=== PATIENT | female | born 1980 | race African-American/Black ===

== ENCOUNTER 2017-01-28 22:22 | Emergency (ER) | payer OTHER, MEDICAID ==
[2017-01-28 22:30] VITALS: BP 136/91; BMI 30.3
[2017-01-28] MEDS ORDERED: TYLENOL 500 MG TAB EXTRA STRENGTH ONE (22:35)
[2017-01-28] MEDS ORDERED: TYLENOL 500 MG TAB EXTRA STRENGTH PO ONE (22:49)
--- NOTE | 2017-01-29 00:47 | DR.GENAD ---
HPI - PCP Primary Care Physician: NFD - HPI Comment HPI Comment: GETTING WORSE. PATIENT IS WEAK AND DRAINED OF ENERGY. - Complaint/Symptoms Chief Complaint Doctors Comments: FEVER, NAUSEA AND VOMITING Chief Complaint:: "I have been throwing up and running a fever." Self Treatment fo Chief Complaint: Patient took 2 asprin around 2pm - Nurses notes reviewed Nurses Notes Review: Yes - Source History Provided: Patient - Mode of Arrival Mode of Arrival: Ambulatory - Timing Onset of Chief Complaint: 01/27/17 Came on: Suddenly - Duration Duration: Constant Duration: Days - Severity Severity: Moderate PMH - PMH Past Medical History: Yes Past Medical History: Hypertension Past Surgical History: No - Family History History of Family Medical Conditions: Yes Family Medical History: Diabetes Mellitus, [place], Hypertension - Social History Does patient currently use any type of tobacco product: No Have you used tobacco products in the last 12 months: No Type of Tobacco Use: None Does any household member use tobacco: No Alcohol Use: None Do you use any recreational Drugs:: No Lives With: Spouse Lives Where: Home - infectious screening In the last 2 months have you had wt loss of >10#?: NO Have you had fever, night sweats or hemotysis?: No Have you traveled outside the country in the last 6 months?: No Isolation: Standard ROS - Review of Systems Constitutional: Chills, Fever, Weakness, Fatigue Eyes: No Symptoms Reported. negative: Eye Pain, Discharge ENTM: No Symptoms Reported. negative: Ear Pain, Nose Discharge, Nose Congestion , Throat Pain Respiratoy: No Symptoms Reported. negative: Productive Cough, Non-Productive Cough, Short of Breath, Wheezing, Hemoptysis Cardiovascular: No Symptoms Reported. negative: Chest Pain Gastrointestinal/Abdominal: Abdominal Pain, Nausea, Vomiting Genitourinary: No Symptoms Reported. negative: Dysuria, Frequency, Hematuria Neurological: No Symptoms Reported, Headache, Weakness, Dizziness Musculoskeletal: No Symptoms Reported Integumentary: No Symptoms Reported Hematologic/Lymphatic: No Symptoms Reported Endocrine: No Symptoms Reported All Other Systems: Reviewed and Negative PE - Vital Signs Vitals: Temperature 102.8 F Pulse Rate 118 Respiratory Rate 18 Blood Pressure 136/91 O2 Sat by Pulse Oximetry 95 - General Limitations: No Limitations General Appearance: Alert - Head Head Exam: Normal Inspection - Eyes Eye exam: Normal Appearance - ENT ENT Exam: Normal External Ear Exam External Ear Exam: Normal External Inspection TM/Canal Exam: Bilateral Normal Nose Exam: Normal Nose Exam Mouth Exam: Normal Inspection Throat Exam: Normal Inspection - Neck Neck Exam: Normal Inspection - Chest Chest Inspection: Symmetric Chest Wall Rise - Respiratory Respiratory Exam: Normal Lung Sounds Bilat Respiratory Exam: Bilateral Clear to Auscultation - Cardiovascular Cardiovascular Exam: Regular Rate, Normal Rhythm, Tachycardia - Abdominal Exam Abdominal Tenderness: Diffuse, Moderate - Back Back Exam: Normal Inspection - Neurologic Neurological Exam: Alert, Oriented X3 - Psychiatric Psychiatric Exam: Anxious - Skin Skin Exam: Normal Color MDM - Differential Diagnosis Differential Diagnosis: GASTROENTERITIS, ABDOMINAL PAIN, FLU Course - Treatment Treatment: SEE ORDERS. - Education/Counseling Education/Counseling: Patient, Education Educated On: Treatment, Diagnosis, Needs for Follow Up ROR - Labs Reviewed Laboratory Results Reviewed?: Yes Result Diagrams: 01/29/17 01:05 01/29/17 01:05 Laboratory: WBC 5.2 X10^3/uL (3.6-10.0) 01/29/17 01:05 RBC 3.96 X10^6/uL (3.5-5.4) 01/29/17 01:05 Hgb 10.8 g/dL (12.0-16.0) L 01/29/17 01:05 Hct 33.5 % (36.0-47.0) L 01/29/17 01:05 MCV 84.4 fL (80.0-100.0) 01/29/17 01:05 MCH 27.2 pg (27.0-34.0) 01/29/17 01:05 MCHC 32.3 g/dL (33.0-35.0) L 01/29/17 01:05 RDW 15.8 % (11.6-16.5) 01/29/17 01:05 Plt Count 209 X10^3/uL (150.0-450.0) 01/29/17 01:05 MPV 7.6 fL (7.4-11.0) 01/29/17 01:05 Neut % 81.3 % (42.0-75.0) H 01/29/17 01:05 Lymph % 10.9 % (21.0-51.0) L 01/29/17 01:05 [place] % 7.7 % (0.0-13.0) 01/29/17 01:05 Eos % 0.0 % (0.9-2.9) L 01/29/17 01:05 Baso % 0.1 % (0.2-1.0) L 01/29/17 01:05 Neut # 4.2 x10^3/uL (2.2-4.8) 01/29/17 01:05 Lymph # 0.6 X10^3/uL (1.3-2.9) L 01/29/17 01:05 [place] # 0.4 x10^3/uL (0.3-0.8) 01/29/17 01:05 Eos # 0.0 x10^3/uL (0.0-0.2) 01/29/17 01:05 Baso # 0.0 X10^3/uL (0.0-0.1) 01/29/17 01:05 Absolute Nucleated RBC 0.1 /100WBC 01/29/17 01:05 Sodium 143 mmol/L (136-145) 01/29/17 01:05 Corrected Sodium TNP 01/29/17 01:05 Potassium 3.0 mmol/L (3.5-5.1) L* 01/29/17 01:05 Chloride 106 mmol/L (98-107) 01/29/17 01:05 Carbon Dioxide 25.1 mmol/L (21-32) 01/29/17 01:05 BUN 9 mg/dL (7-18) 01/29/17 01:05 Creatinine 1.05 mg/dL (0.55-1.02) H 01/29/17 01:05 Est GFR (MDRD) Af Amer > 60 (>60) 01/29/17 01:05 Est GFR (MDRD) Non-Af > 60 (>60) 01/29/17 01:05 Glucose 108 mg/dL (65-99) H 01/29/17 01:05 Calcium 8.1 mg/dL (8.5-10.1) L 01/29/17 01:05 Corrected Calcium TNP 01/29/17 01:05 Total Bilirubin 0.60 mg/dL (0.2-1.0) 01/29/17 01:05 AST 23 Units/L (15-37) 01/29/17 01:05 ALT 29 Units/L (12-78) 01/29/17 01:05 Alkaline Phosphatase 103 Units/L (46-116) 01/29/17 01:05 Total Protein 8.4 g/dL (6.4-8.2) H 01/29/17 01:05 Albumin 3.7 g/dL (3.4-5.0) 01/29/17 01:05 Globulin 4.7 g/dL (2.5-4.5) H 01/29/17 01:05 Albumin/Globulin Ratio 0.8 Ratio (1.1-2.1) L 01/29/17 01:05 Specimen Type Clean catch urine 01/29/17 01:41 Urine Color Yellow (YELLOW) 01/29/17 01:41 Urine Appearance Clear (CLEAR) 01/29/17 01:41 Urine pH 5.0 (5.0 - 8.0) 01/29/17 01:41 Ur Specific [place] 1.015 (1.000-1.030) 01/29/17 01:41 Urine Protein 2+ (NEGATIVE) 01/29/17 01:41 Urine Glucose (UA) Negative (NEGATIVE) 01/29/17 01:41 Urine Ketones Negative (NEGATIVE) 01/29/17 01:41 Urine Occult Blood 5+ (NEGATIVE) 01/29/17 01:41 Urine Nitrite Negative (NEGATIVE) 01/29/17 01:41 Urine Bilirubin Negative (NEGATIVE) 01/29/17 01:41 Urine Urobilinogen Normal (NORMAL) 01/29/17 01:41 Ur Leukocyte Esterase Negative (NEGATIVE) 01/29/17 01:41 Urine RBC 0-3 /HPF (NEGATIVE) 01/29/17 01:41 Urine WBC 0-2 /HPF (NEGATIVE) 01/29/17 01:41 Ur Squamous Epith Cells Moderate /HPF (NEGATIVE) 01/29/17 01:41 Urine Bacteria 1+ /HPF (NEGATIVE) 01/29/17 01:41 Ur Culture Indicated? No/not indicated 01/29/17 01:41 Influenza A (H1N1) PCR Not detected (NOT DETECT) 01/29/17 00:57 Influenza Type A (PCR) Positive (NEGATIVE) A 01/29/17 00:57 Influenza Type B (PCR) Negative (NEGATIVE) 01/29/17 00:57 - Diagnosis Discharge Problem: Influenza, Gastroenteritis - Discharge Plan Disposition: 01 HOME, SELF-CARE Condition: Stable Prescriptions: Acetaminophen/Codeine Tab [TYLENOL w/CODEINE #3 (300 MG/30 MG) *] 1 tab PO Q4- 6H PRN #15 tab PRN Reason: Pain Ondansetron HCl [Zofran Tab 4 mg] 4 mg PO Q8H PRN #12 tab PRN Reason: Nausea/Vomiting Oseltamivir Phosphate [Tamiflu] 75 mg PO BID #10 cap - Follow ups/Referrals Follow ups/Referrals: NFD,None [Primary Care Provider] - 3 days - Instructions Instructions: Influenza, Adult, Viral Gastroenteritis, Adult, [id number] Additional Instructions: RETURN TO ED IF WORSE,
[2017-01-29 01:21] LABS: BASOPHILS % (AUTO) 0.1 % (0.2-1.0); HEMATOCRIT 33.5 % (36.0-47.0); HEMOGLOBIN 10.8 g/dL (12.0-16.0); LYMPHOCYTES # (AUTO) 0.6 X10^3/uL (1.3-2.9); LYMPHOCYTES % (AUTO) 10.9 % (21.0-51.0); MEAN CORPUSCULAR HEMOGLOBIN 27.2 pg (27.0-34.0); MEAN CORPUSCULAR HGB CONC 32.3 g/dL (33.0-35.0); MEAN CORPUSCULAR VOLUME 84.4 fL (80.0-100.0); MEAN PLATELET VOLUME 7.6 fL (7.4-11.0); MONOCYTES # (AUTO) 0.4 x10^3/uL (0.3-0.8); MONOCYTES % (AUTO) 7.7 % (0.0-13.0); NEUTROPHILS # (AUTO) 4.2 x10^3/uL (2.2-4.8); NEUTROPHILS % (AUTO) 81.3 % (42.0-75.0); PLATELET COUNT 209 X10^3/uL (150.0-450.0); RED BLOOD COUNT 3.96 X10^6/uL (3.5-5.4); RED CELL DISTRIBUTION WIDTH 15.8 % (11.6-16.5); WHITE BLOOD COUNT 5.2 X10^3/uL (3.6-10.0)
[2017-01-29 01:23] LABS: BLOOD UREA NITROGEN 9 mg/dL (7-18); CALCIUM 8.1 mg/dL (8.5-10.1); CARBON DIOXIDE 25.1 mmol/L (21-32); CHLORIDE 106 mmol/L (98-107); CREATININE 1.05 mg/dL (0.55-1.02); GLUCOSE 108 mg/dL (65-99); SODIUM 143 mmol/L (136-145); eGFR BLACK RACES > 60 (>60); eGFR NON BLACK RACES > 60 (>60)
[2017-01-29 01:27] LABS: ALANINE AMINOTRANSFERASE 29 Units/L (12-78); ALBUMIN 3.7 g/dL (3.4-5.0); ALKALINE PHOSPHATASE 103 Units/L (46-116); ASPARTATE AMINO TRANSFERASE 23 Units/L (15-37); TOTAL PROTEIN 8.4 g/dL (6.4-8.2)
[2017-01-29] MEDS ORDERED: TORADOL 60 MG VIAL IM ONE (01:33)
[2017-01-29] MEDS ORDERED: ZOFRAN INJ 4 MG VIAL IM ONE (01:33)
[2017-01-29] MEDS ORDERED: TORADOL 60 MG VIAL ONE (01:38)
[2017-01-29] MEDS ORDERED: ZOFRAN INJ 4 MG VIAL ONE (01:43)
[2017-01-29 01:47] LABS: BILIRUBIN,URINE NEGATIVE (NEGATIVE); BLOOD/HEMOGLOBIN,URINE 5+ (NEGATIVE); GLUCOSE, URINE NEGATIVE (NEGATIVE); KETONES,URINE NEGATIVE (NEGATIVE); LEUKOCYTE ESTERASE ,URINE NEGATIVE (NEGATIVE); NITRITES,URINE NEGATIVE (NEGATIVE); PROTEIN,URINE 2+ (NEGATIVE); UROBILINOGEN,URINE NORMAL (NORMAL)
[2017-01-29 01:49] LABS: APPEARANCE,URINE CLEAR (CLEAR); COLOR,URINE YELLOW (YELLOW)
[2017-01-29 01:51] LABS: BACTERIA,URINE 1+ /HPF (NEGATIVE); RBC,URINE 0-3 /HPF (NEGATIVE); SQUAMOUS EPITHELIAL CELL,UR MODERATE /HPF (NEGATIVE)
[2017-01-29] MEDS ORDERED: POTASSIUM CHLORIDE LIQ 20 MEQ UDC PO ONE (01:53)
[2017-01-29] MEDS ORDERED: POTASSIUM CHLORIDE LIQ 20 MEQ UDC ONE (02:01)
[2017-01-29] MEDS ORDERED: K-DUR TAB 20 MEQ PO ONE ×2 (02:53→02:58)
== END 2017-01-29 03:15 | disposition home or self-care (01) ==
LOC: ER 22:22
DX: J11.1 Influenza due to unidentified influenza virus with other respiratory manifestations (principal); K52.89 Other specified noninfective gastroenteritis and colitis
CPT/HCPCS: 36415; 80053; 81001; 85025; 87502; 87503; 96372; 99283; J1885; J2405

== ENCOUNTER → 2017-09-05 | Outpatient (CLI) | payer OTHER, MEDICAID | LOC: LAB 12:09 | PROVIDERS: ATTEND Internal Medicine Cardiovascular Disease | DX: Z13.29 Encounter for screening for other suspected endocrine disorder (principal); Z79.899 Other long term (current) drug therapy | CPT/HCPCS: 36415; 84443 ==

== ENCOUNTER 2017-11-03 15:10 | Emergency (ER) | payer OTHER, MEDICAID ==
[2017-11-03 15:27] VITALS: BP 145/99; BMI 29.8
--- NOTE | 2017-11-03 16:30 | DR.FBACK ---
HPI - PCP Primary Care Physician: LINETTE - Complaint Chief Complaint:: PT C/O BACK PAIN FOR THE PAST 5 DAYS PT STATES HX OF ARTHRITIS , PT C/O INTERMITTANT SHARP PAINS,,, PT DENIES ANY TRAUMA. Self Treatment fo Chief Complaint: ADVIL PM, - Reviewed Nurses Notes Review: Yes - Source History Provided: Patient - Mode of Arrival Mode of Arrival: Ambulatory - Timing Onset of Chief Complaint: 10/30/17 - Duration Duration: Constant Duration: Days - Location Back Pain Location: BACK - Severity Severity: Moderate - Associated Signs and Symptoms Back Pain Symptoms: None Numbness: None Weakness: None PMH - PMH Past Medical History: Yes Past Medical History: Hypertension Past Surgical History: No - Family History History of Family Medical Conditions: Yes Family Medical History: Diabetes Mellitus, [place], Hypertension - Social History Does patient currently use any type of tobacco product: No Have you used tobacco products in the last 12 months: No Type of Tobacco Use: None Does any household member use tobacco: No Alcohol Use: None Do you use any recreational Drugs:: No Lives With: Alone, Family Lives Where: Home - infectious screening In the last 2 months have you had wt loss of >10#?: NO Have you had fever, night sweats or hemotysis?: No Have you traveled outside the country in the last 6 months?: No Isolation: Standard ROS - Review of Systems Constitutional: No Symptoms Reported Eyes: No Symptoms Reported ENTM: No Symptoms Reported Respiratoy: No Symptoms Reported Cardiovascular: No Symptoms Reported Gastrointestinal/Abdominal: No Symptoms Reported Genitourinary: No Symptoms Reported Neurological: No Symptoms Reported Musculoskeletal: No Symptoms Reported, Back Pain, Back Integumentary: No Symptoms Reported Hematologic/Lymphatic: No Symptoms Reported Endocrine: No Symptoms Reported All Other Systems: Reviewed and Negative PE - Vitals Vital Signs: Temp Pulse Resp BP Pulse Ox 11/03/17 15:23 98.0 F 91 H 18 145/99 96 01/28/17 22:26 136/91 - General Limitations: No Limitations General Appearance: Alert - Head Head Exam: Normal Inspection - Eyes Eye exam: Normal Appearance - ENT ENT Exam: Normal External Ear Exam - Chest Chest Inspection: Symmetric Chest Wall Rise - Respiratory Respiratory Exam: Normal Lung Sounds Bilat Respiratory Exam: Bilateral Clear to Auscultation - Cardiovascular Cardiovascular Exam: Regular Rate, Normal Rhythm, Normal Heart Sounds - Abdominal Exam Abdominal Exam: Normal Bowel Sounds, Soft, Tenderness - Genitourinary External Exam: Female: Deferred : Speculum Exam (Female): Deferred : Bimanual Exam (female): Deferred - Extremities Extremities Exam: Normal Inspection - Neurological Neurological Exam: Alert, Oriented X3 - Psychiatric Psychiatric Exam: Normal Affect, Normal Mood - Skin Skin Exam: Erythema MDM - Additional Information Additional Information Obtained From: Family - Differential Diagnosis Differential Diagnosis: DJD, Musculoskeletal Pain, Strain Course - Treatment Treatment: SEE ORDERS. - Education/Counseling Education/Counseling: Patient, Family, Education Educated On: Diagnosis - Discharge Plan Condition: Stable Prescriptions: Cyclobenzaprine HCl [FLEXERIL 10 MG *] 10 mg PO TID #20 tab Meloxicam [Mobic Tab 15 mg] 15 mg PO DAILY #30 tab Tramadol HCl 50 mg PO Q8H PRN #15 tablet PRN Reason: - Follow ups/Referrals Follow ups/Referrals: NFD,None [Primary Care Provider] - 3 days - Instructions Instructions: Back Pain, Adult, [id number] Additional Instructions: RETURN TO ED IF WORSE.
[2017-11-03] MEDS ORDERED: NORFLEX INJ IM ONE (16:43)
[2017-11-03] MEDS ORDERED: TORADOL 60 MG VIAL IM ONE (16:43)
[2017-11-03] MEDS ORDERED: TORADOL 60 MG VIAL ONE (16:47)
[2017-11-03] MEDS ORDERED: NORFLEX INJ ONE (16:47)
== END 2017-11-03 17:29 | disposition home or self-care (01) ==
LOC: ER 15:48
DX: M54.5 Low back pain (principal)
CPT/HCPCS: 96372; 99282; J1885; J2360

== ENCOUNTER 2017-11-06 10:14 | Emergency (ER) | payer OTHER, MEDICAID ==
[2017-11-06 10:18] VITALS: BP 126/79; BMI 29.8
--- NOTE | 2017-11-06 11:02 | DR.URIAD ---
HPI - Time Seen Time seen: 10:55 - PCP Primary Care Physician: NLD - Complaint Chief Complaint Doctors Comments: Patient states that her symptoms started three days when she was seen in the ED. Today she is unable to tolerate anything by mouth. just does not feel well. Chief Complaint:: PT. C/O COUGH, CHILLS, SNEEZING, HEADACHE, CHEST DISCOMFORT, AND LOWER BACK PAIN. - Source History Provided: Patient - Mode of Arrival Mode of Arrival: Ambulatory - Timing Onset of Chief Complaint: 11/03/17 PMH - PMH Past Medical History: Yes Past Medical History: Hypertension Past Surgical History: No Surgical History: No History - Family History History of Family Medical Conditions: Yes Family Medical History: Diabetes Mellitus, [place], Hypertension - Social History Does patient currently use any type of tobacco product: No Have you used tobacco products in the last 12 months: No Type of Tobacco Use: None Does any household member use tobacco: No Alcohol Use: None Do you use any recreational Drugs:: No Lives With: Family Lives Where: Home - infectious screening In the last 2 months have you had wt loss of >10#?: NO Have you had fever, night sweats or hemotysis?: No Have you traveled outside the country in the last 6 months?: No Isolation: Standard ROS - Review of Systems Eyes: No Symptoms Reported ENTM: No Symptoms Reported Respiratoy: No Symptoms Reported Cardiovascular: No Symptoms Reported Gastrointestinal/Abdominal: Diarrhea, Vomiting Genitourinary: No Symptoms Reported Neurological: No Symptoms Reported Musculoskeletal: No Symptoms Reported Integumentary: No Symptoms Reported Hematologic/Lymphatic: No Symptoms Reported Endocrine: No Symptoms Reported Psychiatric: No Symptoms Reported All Other Systems: Reviewed and Negative PE - Vital Signs Vitals: Temperature 98.5 F Pulse Rate 83 Respiratory Rate 17 Blood Pressure 126/79 O2 Sat by Pulse Oximetry 97 - General General Appearance: Alert, In No Apparent Distress - Head Head Exam: Normal Inspection, Atraumatic - Eyes Eye exam: Normal Appearance, PERRL - ENT ENT Exam: Normal Exam External Ear Exam: Normal External Inspection TM/Canal Exam: Bilateral Normal Nose Exam: Normal Nose Exam Nasal Speculum Exam: Bilateral Normal Mouth Exam: Normal Inspection Throat Exam: Normal Inspection - Neck Neck Exam: Normal Inspection - Chest Chest Inspection: Normal Inspection - Respiratory Respiratory Exam: Normal Lung Sounds Bilat Respiratory Exam: Bilateral Clear to Auscultation - Cardiovascular Cardiovascular Exam: Regular Rate, Normal Rhythm - Abdominal Exam Abdominal Exam: Normal Inspection, Normal Bowel Sounds. negative: Distention, Tenderness Abdominal Tenderness: negative: RUQ, RLQ, LUQ, LLQ, Epigastrium, Suprapubic, Diffuse, Mild, Moderate, Severe, Other - Extremeties Extremities Exam: Normal Inspection, Full ROM - Back Back Exam: Normal Inspection - Neurologic Neurological Exam: Alert, Oriented X3, CN II-XII Intact - Psychiatric Psychiatric Exam: Normal Affect, Normal Mood - Skin Skin Exam: Warm, Dry, Intact Course - Reevaluation 1st: Unchanged ROR - Labs Reviewed Laboratory Results Reviewed?: Yes (Influenza A) Laboratory: Influenza Type A (PCR) Negative (NEGATIVE) 11/06/17 10:51 Influenza Type B (PCR) Positive (NEGATIVE) A 11/06/17 10:51 - Diagnosis Discharge Problem: Influenza A - Discharge Plan Condition: Stable - Follow ups/Referrals Follow ups/Referrals: NFD,None [Primary Care Provider] - 3 days - Instructions
[2017-11-06] MEDS ORDERED: ZOFRAN INJ 4 MG VIAL IVP ONE (11:05)
[2017-11-06] MEDS ORDERED: TORADOL 30 MG VIAL IVP ONE (11:05)
[2017-11-06] MEDS ORDERED: NS 1000 ML 1,000 ML IV ONE (11:05)
[2017-11-06] MEDS ORDERED: ZOFRAN INJ 4 MG VIAL ONE (11:09)
[2017-11-06] MEDS ORDERED: NS 1000 ML 1,000 ML ONE (11:09)
[2017-11-06] MEDS ORDERED: TORADOL 30 MG VIAL ONE (11:09)
== END 2017-11-06 12:15 | disposition home or self-care (01) ==
LOC: ER 10:22
DX: J11.1 Influenza due to unidentified influenza virus with other respiratory manifestations (principal)
CPT/HCPCS: 87502; 96365; 96374; 96375; 99282; 99283; A4222; J1885; J2405

== ENCOUNTER 2018-01-23 19:11 | Emergency (ER) | payer OTHER, MEDICAID ==
[2018-01-23 19:16] VITALS: BMI 29.2
[2018-01-23 21:59] VITALS: BP 152/92
--- NOTE | 2018-01-23 22:35 | DR.GENAD ---
HPI - PCP Primary Care Physician: LEONILA [place] - Complaint/Symptoms Chief Complaint Doctors Comments: Patient is on four classes of drug for blood pressure control. Chief Complaint:: "I SEEN THE DOCTOR TODAY, MY BLOOD PRESSURE WAS HIGH SO SHE SENT ME TO THE ER IN [place]. THEY TOLD ME IT WAS GOING TO BE A 6 HR WAIT. SHE WOULDN'T REFILL MY MEDS FOR BP BC I DIDN'T GET SEEN BY DOCTOR IN ER. I AM HAVING PAIN IN MY RIGHT FOOT FOR THE LAST 3 WEEKS, BUT IT IS GETTING WORSE." DENIES INJURY. - Source History Provided: Patient - Mode of Arrival Mode of Arrival: Ambulatory - Timing Onset of Chief Complaint: 01/23/18 PMH - PMH Past Medical History: Yes Past Medical History: Hypertension Past Surgical History: No Surgical History: No History - Family History History of Family Medical Conditions: Yes Family Medical History: Diabetes Mellitus, [place], Hypertension - Social History Does patient currently use any type of tobacco product: No Have you used tobacco products in the last 12 months: No Type of Tobacco Use: None Does any household member use tobacco: No Alcohol Use: None Do you use any recreational Drugs:: No Lives Where: Home - infectious screening Have you traveled outside the country in the last 6 months?: No Isolation: Standard ROS - Review of Systems Eyes: No Symptoms Reported ENTM: No Symptoms Reported Respiratoy: No Symptoms Reported Cardiovascular: No Symptoms Reported Gastrointestinal/Abdominal: No Symptoms Reported Genitourinary: No Symptoms Reported Neurological: No Symptoms Reported Musculoskeletal: No Symptoms Reported Integumentary: No Symptoms Reported Hematologic/Lymphatic: No Symptoms Reported Endocrine: No Symptoms Reported Psychiatric: No Symptoms Reported All Other Systems: Reviewed and Negative PE - Vital Signs Vitals: Temperature 98.7 F Pulse Rate 83 Respiratory Rate 18 Blood Pressure [Left Arm] 152/92 Blood Pressure 123/72 O2 Sat by Pulse Oximetry 97 - Diagnosis Discharge Problem: Hypertension Qualifiers: Hypertension type: essential hypertension Qualified Code(s): I10 - Essential ( primary) hypertension - Discharge Plan Condition: Stable - Follow ups/Referrals Follow ups/Referrals: NFD,None [Primary Care Provider] - 3 days - Instructions
== END 2018-01-23 22:59 | disposition home or self-care (01) ==
LOC: ER 19:22
DX: I10 Essential (primary) hypertension (principal)
CPT/HCPCS: 99281; 99282

== ENCOUNTER 2019-04-12 15:42 | Inpatient (IN) ==
[2019-04-12 16:19] LABS: BASOPHILS % (AUTO) 0.2 % (0.2-1.0); HEMATOCRIT 28.1 % (36.0-47.0); HEMOGLOBIN 8.8 g/dL (12.0-16.0); LYMPHOCYTES # (AUTO) 0.9 X10^3/uL (1.3-2.9); LYMPHOCYTES % (AUTO) 14.8 % (21.0-51.0); MEAN CORPUSCULAR HEMOGLOBIN 22.5 pg (27.0-34.0); MEAN CORPUSCULAR HGB CONC 31.1 g/dL (33.0-35.0); MEAN CORPUSCULAR VOLUME 72.4 fL (80.0-100.0); MEAN PLATELET VOLUME 7.6 fL (7.4-11.0); MONOCYTES # (AUTO) 0.4 x10^3/uL (0.3-0.8); MONOCYTES % (AUTO) 5.8 % (0.0-13.0); NEUTROPHILS # (AUTO) 5.1 x10^3/uL (2.2-4.8); NEUTROPHILS % (AUTO) 79.2 % (42.0-75.0); PLATELET COUNT 228 X10^3/uL (150.0-450.0); RED BLOOD COUNT 3.89 X10^6/uL (3.5-5.4); RED CELL DISTRIBUTION WIDTH 19.4 % (11.6-16.5); WHITE BLOOD COUNT 6.4 X10^3/uL (3.6-10.0)
[2019-04-12 16:20] LABS: PLATELET MORPHOLOGY COMMENT NORMAL (NORMAL)
--- NOTE | 2019-04-12 16:23 | RAD ---
HISTORY: Shortness of breath and chest pain Study: Single-view chest Comparison: 02/07/2019 Findings: The trachea is midline. The cardiac silhouette is enlarged with a tortuous thoracic aorta. Focal airspace opacity of the right upper lobe is observed consistent with developing bronchopneumonia. Density within the retrocardiac region cannot be excluded but overlying soft tissue does limit visualization of the left lower lobe PA and lateral departmental radiograph would be of benefit in follow-up. The bony thorax is unremarkable. IMPRESSION: Developing right upper lobe pneumonia for which continued follow-up will be needed. Likewise, limited visualization of the left lower lobe secondary overlying soft tissue is noted and underlying infiltrate cannot be excluded. PA and lateral radiograph would be of benefit when clinically feasible. Reported By:
[2019-04-12 16:24] LABS: ANISOCYTOSIS SLIGHT; HYPOCHROMASIA 1+; MICROCYTOSIS SLIGHT
[2019-04-12 16:27] LABS: ABG BASE EXCESS 7.5 mmol/L (-2.0-2.0)
[2019-04-12 16:28] LABS: ABG HCO3 31.1 mmol/L (22-26)
[2019-04-12] MEDS ORDERED: DUONEB 0.5 MG/3 MG NEB ONE (16:29)
[2019-04-12] MEDS ORDERED: SOLU-Medrol 125 MG VIAL IVP ONE (16:29)
--- NOTE | 2019-04-12 16:31 | DR.GENAD ---
HPI - PCP Primary Care Physician: dr fuentes - Complaint/Symptoms Chief Complaint Doctors Comments: Patient is complaining of problems breathing for the past 24 hours getting progressively worst today with wheezing and SOB. She denies chest pain, fever, chills but has a non-productive cough. She denies dysuria, hematuria, vomiting or diarrhea. SHe has a history blood clot in her l eg and lungs in the past. She denies swelling or pain in her legs. States she is a patient of Dr. Fuentes and takes medicines for blood pressure. Chief Complaint:: pt stated she has been having problems with shortness of breath and hard to catch her breath - Nurses notes reviewed Nurses Notes Review: Yes - Source History Provided: Patient - Mode of Arrival Mode of Arrival: Ambulatory - Timing Onset of Chief Complaint: 04/11/19 Came on: Gradually - Duration Duration: Constant Duration: Days - Location Location: SOB - Severity Severity: Moderate - Modifying Factors Worsens:: nothing Improves:: nothing PMH - PMH Past Medical History: No Past Medical History: Hypertension, Anxiety Past Surgical History: No Surgical History: Ortho Surgery - Family History History of Family Medical Conditions: Yes Family Medical History: Diabetes Mellitus - Social History Does any household member use tobacco: No Alcohol Use: None Do you use any recreational Drugs:: No Lives With: Family Lives Where: Home - infectious screening In the last 2 months have you had wt loss of >10#?: NO Have you had fever, night sweats or hemotysis?: No Have you traveled outside the country in the last 6 months?: No Isolation: Standard ROS - Review of Systems Constitutional: No Symptoms Reported. negative: See HPI, Chills, Diaphoresis, Fever, Malaise, Weakness, Irritable, Fatigue, Loss of Appetite, Other Eyes: No Symptoms Reported ENTM: No Symptoms Reported. negative: See HPI, Ear Pain, Ear Discharge, Pulling on Ears, Hearing Loss, Nose Pain, Nose Discharge, Epistaxis, Nose Congestion, Mouth Pain, Mouth Swelling, Loose Teeth, Drooling, Throat Pain, Throat Swelling, Ear Foreign Body, Tooth/Dental Pain Respiratoy: No Symptoms Reported, Non-Productive Cough, Short of Breath, Wheezing Cardiovascular: No Symptoms Reported. negative: See HPI, Chest Pain, Edema, Palpitations, Syncope, Cyanosis, Skin Mottling, Other Gastrointestinal/Abdominal: No Symptoms Reported. negative: See HPI, Abdominal Pain, Constipation, Diarrhea, Nausea, Vomiting, Food Intolerance, Other Genitourinary: No Symptoms Reported, See HPI Neurological: No Symptoms Reported Musculoskeletal: No Symptoms Reported. negative: See HPI, Back Pain, Gout, Joint Pain, Joint Swelling, Muscle Pain, Muscle Stiffness, Neck Pain, Right, Left, Neck, Chest wall, Rib(s), Back, Shoulder, Arm, Elbow, Forearm, Wrist, Hand, Pelvis, Hip, Leg, Knee, Ankle, Foot, Other Integumentary: No Symptoms Reported. negative: See HPI, Change in Color, Change in Hair/Nails, Dryness, Lesions, Lumps, Rash, Itching, Wound, Bruises, Juandice, Other Hematologic/Lymphatic: No Symptoms Reported. negative: See HPI, Anemia, Blood Clots, Easy Bleeding, Easy Bruising, Swollen Glands, Lymphadenopathy, Other Endocrine: No Symptoms Reported Psychiatric: No Symptoms Reported. negative: See HPI, Anxiety, Depression, Hallucinations, Excessive crying, Suicidal, Other PE - General Limitations: No Limitations General Appearance: Alert, In Distress (moderate) - Head Head Exam: Normal Inspection, Atraumatic, Normocephalic - Eyes Eye exam: Normal Appearance, PERRL, EOMI. negative: Scleral Icterus, Conjunctival Injection, Nystagmus, Miosis, Mydrasis, Periorbital Swelling, Periorbital Tenderness, Other - ENT ENT Exam: Normal Exam, Normal Oropharynx, Normal External Ear Exam, Mucous Membranes Moist, TM's Normal Bilaterally External Ear Exam: Normal External Inspection TM/Canal Exam: Bilateral Normal Nose Exam: Normal Nose Exam Mouth Exam: Normal Inspection. negative: Drooling, Trismus, Lip Swelling, Tongue Elevation, Tongue Swelling, Laceration, Other Throat Exam: Normal Inspection. negative: Tonsillar Erythema, Tonsillomegaly, Tonsillar Exudate, R Peritonsillar Mass, L Peritonsillar Mass, Muffled Voice, Other - Neck Neck Exam: Normal Inspection, Full ROM, Trachea Midline. negative: Tenderness, Meningismus, Lymphadenopathy, Thyromegaly, Other - Chest Chest Inspection: Normal Inspection, Symmetric Chest Wall Rise - Respiratory Respiratory Exam: Normal Lung Sounds Bilat, Prolonged Expiratory Phase Respiratory Exam: Bilateral Decreased Breath Sounds, Right Rales, Lower Rales - Cardiovascular Cardiovascular Exam: Regular Rate, Normal Rhythm, Normal Heart Sounds, Systolic Murmur - Abdominal Exam Abdominal Exam: Normal Inspection, Normal Bowel Sounds, Soft. negative: Di stention, Tenderness, Guarding, Rebound, Rigidity, Dimnished Bowel Sounds, Hyperactive Bowel Sounds, Hypoactive Bowel Sounds, Organomegaly, Trauma, Incision, Ascites, Mass, Bruit, Pulsatile Mass, Hernia, Other Abdominal Tenderness: negative: RUQ, RLQ, LUQ, LLQ, Epigastrium, Suprapubic, Diffuse, Mild, Moderate, Severe, Other - Extremities Extremities Exam: Normal Inspection, Full ROM, Normal Capillary Refill. negative: Tenderness, Edema, Joint Swelling, Calf Tenderness, Other - Back Back Exam: Normal Inspection, Full ROM. negative: Tenderness, (R) CVA Tenderness, (L) CVA Tenderness, Muscle Spasm, Paraspinal Tenderness, Vertebral Tenderness, Rashes, (R) Sciatic Notch Tenderness, (L) Sciatic Notch Tendern, (R) Straight Leg Raise, (L) Straight Leg Raise, Other - Neurologic Neurological Exam: Alert, Oriented X3, CN II-XII Intact, Normal Gait, Reflexes Normal - Psychiatric Psychiatric Exam: Normal Affect, Normal Mood - Skin Skin Exam: Warm, Dry, Intact, Normal Color - Vital Signs Vitals: Temperature 98.6 F Pulse Rate 92 Respiratory Rate 29 Blood Pressure [Left Arm] 121/72 Blood Pressure 132/93 O2 Sat by Pulse Oximetry 93 ROR - Labs Reviewed Laboratory Results Reviewed?: Yes (All labs and x-ray results reviewed and discussed with patient) Result Diagrams: 04/12/19 16:05 04/12/19 16:05 - XRAY XRAY Interpreted by: Radiologist (CTA chest: NO pulmonary embolus. Opacities right upper lobe and lesser right middle and right lower lobes consistent with multilobar pneumonia. Small bilateral pleural effusion) - Labs Reviewed Laboratory: WBC 6.4 X10^3/uL (3.6-10.0) 04/12/19 16:05 RBC 3.89 X10^6/uL (3.5-5.4) 04/12/19 16:05 Hgb 8.8 g/dL (12.0-16.0) L 04/12/19 16:05 Hct 28.1 % (36.0-47.0) L 04/12/19 16:05 MCV 72.4 fL (80.0-100.0) L 04/12/19 16:05 MCH 22.5 pg (27.0-34.0) L 04/12/19 16:05 MCHC 31.1 g/dL (33.0-35.0) L 04/12/19 16:05 RDW 19.4 % (11.6-16.5) H 04/12/19 16:05 Plt Count 228 X10^3/uL (150.0-450.0) 04/12/19 16:05 Plt Count Comment Adequate (ADEQUATE) 04/12/19 16:05 MPV 7.6 fL (7.4-11.0) 04/12/19 16:05 Neut % (Auto) 79.2 % (42.0-75.0) H 04/12/19 16:05 Lymph % (Auto) 14.8 % (21.0-51.0) L 04/12/19 16:05 [place] % (Auto) 5.8 % (0.0-13.0) 04/12/19 16:05 Eos % (Auto) 0.0 % (0.9-2.9) L 04/12/19 16:05 Baso % (Auto) 0.2 % (0.2-1.0) 04/12/19 16:05 Neut # (Auto) 5.1 x10^3/uL (2.2-4.8) H 04/12/19 16:05 Lymph # (Auto) 0.9 X10^3/uL (1.3-2.9) L 04/12/19 16:05 [place] # (Auto) 0.4 x10^3/uL (0.3-0.8) 04/12/19 16:05 Eos # (Auto) 0.0 x10^3/uL (0.0-0.2) 04/12/19 16:05 Baso # (Auto) 0.0 X10^3/uL (0.0-0.1) 04/12/19 16:05 Absolute Nucleated RBC 0.1 /100WBC 04/12/19 16:05 Plt Morphology Comment Normal (NORMAL) 04/12/19 16:05 RBC Morphology Abnormal (NORMAL) A 04/12/19 16:05 Hypochromasia 1+ A 04/12/19 16:05 Anisocytosis Slight A 04/12/19 16:05 Microcytosis Slight A 04/12/19 16:05 INR Target Range - 04/12/19 16:05 INR 1.31 (0.8-1.3) H 04/12/19 16:05 APTT 32.7 SECONDS (22.9-36.5) 04/12/19 16:05 PTT Comment - 04/12/19 16:05 D-Dimer 273 ng/mL (0-400) 04/12/19 16:05 Sample Site Lb 04/12/19 16:20 ABG pH 7.510 (7.35-7.45) H 04/12/19 16:20 ABG pCO2 39.0 mmHg (35.0-45.0) 04/12/19 16:20 ABG pO2 30.0 mmHg (80.0-100.0) L* 04/12/19 16:20 ABG HCO3 31.1 mmol/L (22-26) H* 04/12/19 16:20 ABG O2 Saturation 66.0 % (90-100) L* 04/12/19 16:20 ABG Base Excess 7.5 mmol/L (-2.0-2.0) H 04/12/19 16:20 Daniel Test Na 04/12/19 16:20 A-a Gradient 71.0 mmHg 04/12/19 16:20 FiO2 21.0 04/12/19 16:20 Blood Gas Comments Pt paige well. cdn 04/12/19 16:20 Sodium 144 mmol/L (136-145) 04/12/19 16:05 Corrected Sodium 144 mmol/L (136-145) 04/12/19 16:05 Potassium 2.8 mmol/L (3.5-5.1) L* 04/12/19 16:05 Chloride 107 mmol/L (98-107) 04/12/19 16:05 Carbon Dioxide 29.0 mmol/L (21-32) 04/12/19 16:05 BUN 11 mg/dL (7-18) 04/12/19 16:05 Creatinine 0.95 mg/dL (0.55-1.02) 04/12/19 16:05 Est GFR (MDRD) Af Amer > 60 (>60) 04/12/19 16:05 Est GFR (MDRD) Non-Af > 60 (>60) 04/12/19 16:05 Glucose 111 mg/dL (65-99) H 04/12/19 16:05 Calcium 8.8 mg/dL (8.5-10.1) 04/12/19 16:05 Corrected Calcium 9.4 mg/dL (8.5-10.1) 04/12/19 16:05 Magnesium 1.9 mg/dL (1.7-2.9) 04/12/19 16:05 Total Bilirubin 0.90 mg/dL (0.2-1.0) 04/12/19 16:05 AST 15 Units/L (15-37) 04/12/19 16:05 ALT 15 Units/L (12-78) 04/12/19 16:05 Alkaline Phosphatase 74 Units/L (46-116) 04/12/19 16:05 Creatine Kinase 240 Units/L (26-192) H 04/12/19 16:05 CK-MB (CK-2) < 1.0 ng/mL (0-4.0) 04/12/19 16:05 CK/CKMB % Calc 0.4 % (<4) 04/12/19 16:05 Troponin I 0.04 ng/mL (0-1.5) 04/12/19 16:05 B-Natriuretic Peptide 657 pg/mL (0-79) H* 04/12/19 16:05 Total Protein 8.4 g/dL (6.4-8.2) H 04/12/19 16:05 Albumin 3.3 g/dL (3.4-5.0) L 04/12/19 16:05 Globulin 5.1 g/dL (2.5-4.5) H 04/12/19 16:05 Albumin/Globulin Ratio 0.6 Ratio (1.1-2.1) L 04/12/19 16:05 Opioid - Opioid Risk Tool Total: 0 Total Score Risk Category: Low Risk - Diagnosis Discharge Problem: Multilobar lung infiltrate, Hypoxemia, Pleural effusion, Hypokalemia, Cardiomegaly, Microcytic anemia Pneumonia Qualifiers: Laterality: right Lung location: middle lobe of lung - Discharge Plan Disposition: ADMITTED INPATIENT Condition: Stable - Follow ups/Referrals Follow ups/Referrals: TANIA FUENTES [Primary Care Provider] - 3 days - Instructions
[2019-04-12] MEDS ORDERED: SOLU-Medrol 125 MG VIAL ONE (16:32)
[2019-04-12 16:39] LABS: ALANINE AMINOTRANSFERASE 15 Units/L (12-78); ALBUMIN 3.3 g/dL (3.4-5.0); ALKALINE PHOSPHATASE 74 Units/L (46-116); ASPARTATE AMINO TRANSFERASE 15 Units/L (15-37); BLOOD UREA NITROGEN 11 mg/dL (7-18); CALCIUM 8.8 mg/dL (8.5-10.1); CHLORIDE 107 mmol/L (98-107); COR CA(FOR HYPOALB) 9.4 mg/dL (8.5-10.1); COR NA(FOR HYPERGLY) 144 mmol/L (136-145); CREATINE KINASE 240 Units/L (26-192); CREATINE KINASE MB < 1.0 ng/mL (0-4.0); CREATININE 0.95 mg/dL (0.55-1.02); MAGNESIUM 1.9 mg/dL (1.7-2.9); SODIUM 144 mmol/L (136-145); TOTAL PROTEIN 8.4 g/dL (6.4-8.2); TROPONIN I 0.04 ng/mL (0-1.5); eGFR NON BLACK RACES > 60 (>60)
[2019-04-12] MEDS ORDERED: DUONEB 0.5 MG/3 MG ONE (16:39)
[2019-04-12] MEDS ORDERED: ZOSYN VIAL 3.375 GRAMS 3.375 G in NS 100 ML IV + SPIKE MINIBAG* 100 ML IV ONE (16:39)
[2019-04-12 16:46] LABS: CKMB % 0.4 % (<4)
[2019-04-12] MEDS ORDERED: K-LYTE EFFERVESCENT PO SCH (17:00)
[2019-04-12] MEDS ORDERED: NS 100 ML IV 100 ML ONE (17:00)
[2019-04-12] MEDS ORDERED: NS 100 ML IV + SPIKE MINIBAG* 100 ML ONE (17:11)
[2019-04-12] MEDS ORDERED: ZOSYN VIAL 3.375 GRAMS IV ONE (17:12)
[2019-04-12] MEDS ORDERED: SALINE 3% 15 ML NEB TX NEB ONE (17:15)
[2019-04-12] MEDS ORDERED: NS 1/2 1000 ML IV 1,000 ML ONE (17:20)
--- NOTE | 2019-04-12 17:29 | CT ---
HISTORY: Hypoxia shortness of breath.. Study: CTA chest with contrast Comparison: NONE Technique: Multiple axial images of the chest were obtained from the thoracic inlet to the upper abdomen after the administration of IV contrast.. Sagittal and coronal MIP images were reconstructed. Automated exposure control (AEC) was utilized to adjust the MA and/or kV according to patient size. Findings: There are no filling defects within the pulmonary arterial branches to suggest pulmonary emboli. Main pulmonary artery is distended measuring 3.7 cm in diameter.. The thoracic aorta is of normal caliber. There is mediastinal lymphadenopathy demonstrated. There is a right paratracheal lymph node measures 1 cm short axis diameter.. There is moderate severe multichamber cardiomegaly. There is a small pericardial effusion. The central airways are patent. There is confluent airspace and ground-glass opacity involving majority of the right upper lobe, and to a lesser extent the right middle and right lower lobes. There are associated air bronchograms. Findings are consistent with multilobar pneumonia in the appropriate clinical setting. There are small bilateral pleural effusions right greater than left. Limited images of the upper abdomen demonstrate no acute abnormality. Examination of the osseous structures demonstrates no acute osseous abnormality. IMPRESSION: 1. No pulmonary embolus demonstrated 2. Confluent airspace and ground-glass opacities involving right upper lobe and to a lesser extent right middle and right lower lobes consistent with multilobar pneumonia in the appropriate clinical setting 3. Small bilateral right greater than left pleural effusions 4. Small pericardial effusion, multichamber cardiomegaly 5. Mild mediastinal lymphadenopathy nonspecific likely reactive. Attention on follow-up imaging suggested 6. Other findings as above. Reported By:
[2019-04-12] MEDS ORDERED: LEVAQUIN PREMIX IV 750 MG 750 MG/150 ML BAG IV ONE ×2 (18:18→18:42)
[2019-04-12 20:49] VITALS: BMI 29.6
[2019-04-12] MEDS: DUONEB 0.5 MG/3 MG NEB SCH (21:00)
[2019-04-12] MEDS: LOVENOX INJ 40 MG SYR SC SCH (21:02)
[2019-04-12] MEDS ORDERED: KLOR-CON PO PRN (21:04)
[2019-04-12] MEDS ORDERED: K-RIDER 10 MEQ/NS 100 ML 10 MEQ/100 ML BAG IV PRN (21:04)
[2019-04-12] MEDS ORDERED: K-DUR TAB 20 MEQ PO PRN (21:04)
[2019-04-12] MEDS ORDERED: POTASSIUM CHL 40 MEQ/NS 0.45% 500 ML IV PRN (21:04)
[2019-04-12] MEDS ORDERED: POTASSIUM CHL 60 MEQ/NS 0.45% 500 ML IV PRN (21:04)
[2019-04-12] MEDS ORDERED: POTASSIUM CHLORIDE LIQ 20 MEQ UDC PO PRN (21:04)
[2019-04-12] MEDS ORDERED: K-DUR TAB 20 MEQ ONE (21:13)
[2019-04-12] MEDS ORDERED: MAGNESIUM SULFATE 1 GRAM/100 mL PREMIX 2 G/200 ML BAG IV ONE (21:14)
[2019-04-12] MEDS: NS 1/2 1000 ML IV 1,000 ML IV SCH (21:31)
[2019-04-12] MEDS: MAGNESIUM SULFATE 1 GRAM/100 mL PREMIX 1 GM/100 ML BAG IV PRN ×2 (21:31→22:28)
[2019-04-12] MEDS: ZOSYN VIAL 4.5 GRAMS 4.5 G in NS 100 ML IV + SPIKE MINIBAG* 100 ML IV SCH (23:54)
[2019-04-13] MEDS: DUONEB 0.5 MG/3 MG NEB SCH ×5 (01:26→17:04)
[2019-04-13] MEDS: MICRO K EXTEN CAP 10 MEQ PO PRN ×3 (02:08→17:13)
[2019-04-13] MEDS: ZOSYN VIAL 4.5 GRAMS 4.5 G in NS 100 ML IV + SPIKE MINIBAG* 100 ML IV SCH ×3 (05:53→23:56)
[2019-04-13 06:03] LABS: BASOPHILS % (AUTO) 0.1 % (0.2-1.0); HEMATOCRIT 26.8 % (36.0-47.0); HEMOGLOBIN 8.3 g/dL (12.0-16.0); LYMPHOCYTES # (AUTO) 0.5 X10^3/uL (1.3-2.9); LYMPHOCYTES % (AUTO) 9.9 % (21.0-51.0); MEAN CORPUSCULAR HEMOGLOBIN 22.5 pg (27.0-34.0); MEAN CORPUSCULAR HGB CONC 30.9 g/dL (33.0-35.0); MEAN PLATELET VOLUME 7.5 fL (7.4-11.0); MONOCYTES # (AUTO) 0.1 x10^3/uL (0.3-0.8); MONOCYTES % (AUTO) 1.2 % (0.0-13.0); NEUTROPHILS # (AUTO) 4.1 x10^3/uL (2.2-4.8); NEUTROPHILS % (AUTO) 88.8 % (42.0-75.0); PLATELET COUNT 185 X10^3/uL (150.0-450.0); RED BLOOD COUNT 3.68 X10^6/uL (3.5-5.4); RED CELL DISTRIBUTION WIDTH 19.7 % (11.6-16.5); WHITE BLOOD COUNT 4.6 X10^3/uL (3.6-10.0)
[2019-04-13 06:12] LABS: ANISOCYTOSIS SLIGHT; HYPOCHROMASIA 1+; MICROCYTOSIS SLIGHT; PLATELET MORPHOLOGY COMMENT NORMAL (NORMAL)
[2019-04-13 06:14] LABS: ALANINE AMINOTRANSFERASE 15 Units/L (12-78); ALBUMIN 3.1 g/dL (3.4-5.0); ALKALINE PHOSPHATASE 67 Units/L (46-116); ASPARTATE AMINO TRANSFERASE 15 Units/L (15-37); BLOOD UREA NITROGEN 12 mg/dL (7-18); CALCIUM 8.6 mg/dL (8.5-10.1); CARBON DIOXIDE 28.5 mmol/L (21-32); CHLORIDE 107 mmol/L (98-107); COR CA(FOR HYPOALB) 9.3 mg/dL (8.5-10.1); COR NA(FOR HYPERGLY) 145 mmol/L (136-145); CREATININE 0.95 mg/dL (0.55-1.02); MAGNESIUM 2.2 mg/dL (1.7-2.9); SODIUM 144 mmol/L (136-145); TOTAL PROTEIN 8.2 g/dL (6.4-8.2); eGFR NON BLACK RACES > 60 (>60)
--- NOTE | 2019-04-13 06:52 | RAD ---
HISTORY: Pneumonia Study: Single view chest Comparison: CT 04/12/2019 Findings: Portable view demonstrates persistent dense consolidation in the right upper lobe. There is developing left basilar atelectasis or infiltrate. There is a small right effusion. Stable cardiomegaly. IMPRESSION: 1. Dense right upper lobe consolidation and small effusion compatible with pneumonia. 2. Developing left lower lobe atelectasis/infiltrates. 3. Cardiomegaly. Reported By:
[2019-04-13] MEDS ORDERED: LEVAQUIN PREMIX IV 750 MG 750 MG/150 ML BAG IV SCH (09:00)
[2019-04-13 09:18] LABS: ABG ALLEN TEST POS; ABG HCO3 30.2 mmol/L (22-26)
[2019-04-13] MEDS: VANCOMYCIN HCL 1 GM VIAL 1 G in NS 250 ML IV 250 ML IV SCH ×2 (10:53→21:55)
[2019-04-13] MEDS: SOLU-Medrol 40 MG VIAL IVP SCH ×3 (10:53→21:55)
[2019-04-13] MEDS: LOVENOX INJ 40 MG SYR SC SCH (10:54)
[2019-04-13] MEDS ORDERED: PHARMACY CONSULT - VANCOMYCIN XX SCH (11:00)
[2019-04-13] MEDS: PULMICORT NEB TX 0.5 MG NEB SCH ×2 (11:58→20:13)
[2019-04-13] MEDS ORDERED: BENTYL CAP 10 MG PO PRN (12:05)
[2019-04-13] MEDS: NS 1/2 1000 ML IV 1,000 ML IV SCH (14:17)
--- NOTE | 2019-04-13 15:24 | DR.H&P ---
H&P - History & Physical for Day of: H&P Date: 04/12/19 - Chief Complaint Chief Complaint: SOB, COUGH - History of Present Illness History of Present Illness: IS A 39 YEAR OLD PATIENT OF WHO PRESENTED TO THE ER WITH COMPLAINTS OF SHORTNESS OF BREATH AND A NON-PRODUCTIVE COUGH. SHE REPORTS THAT SYMPTOMS STARTED ON DAY PRIOR AND HAS PROGRESSIVELY GOTTEN WORSE. SHE DENIES FEVER, CHILLS, OR CHEST PAIN. MEDICAL HISTORY INCLUDES LOWER EXTREMITY DVT AND PEs, HTN, AND ANXIETY. SHE IS NOTED WITH SCATTERED WHEEZING TO BILATERAL LUNGS ON AUSCULTATION. ON ARRIVAL, VITALS WERE 98.6-85-18-58%RA-123/69. SHE WAS PLACED ON A NON-REBREATHER. OXYGEN SATURATIONS DID INCREASE TO THE LOW 90s. LABS WERE OBTAINED. ABNORMAL LAB VALUES INCLUDE THE FOLLOWING: HGB 8.8, HCT 28.1, INR 1.31, POTASSIUM 2.8, GLUCOSE 111, CREATINE KINASE 240, BNP 657, TOTAL PROTEIN 8.4, ALBUMIN 3.3, GLOUBLIN 5.1. AN ABG WAS OBTAINED ON ROOM AIR AND REVEALED: PH 7.510, PC02 39.0, P02 30.0, HC03 31.1, 02 SATURATION 66.0. BLOOD CULTURES OBTAINED. EKG REVEALED: SINUS RHYTHM WITH HR 93. A CHEST XRAY WAS OBTAINED AND REVEALED: Developing right upper lobe pneumonia for which continued follow-up will be needed. Likewise, limited visualization of the left lower lobe secondary overlying soft tissue is noted and underlying infiltrate cannot be excluded. PA and lateral radiograph would be of benefit when clinically feasible. WE OBTAINED A CHEST CTA. IT REVEALED: No pulmonary embolus demonstrated. Confluent airspace and ground-glass opacities involving right upper lobe and to a lesser extent right middle and right lower lobes consistent with multilobar pneumonia in the appropriate clinical setting. Small bilateral right greater than left pleural effusions. Small pericardial effusion, multichamber cardiomegaly. Mild mediastinal lymphadenopathy nonspecific likely reactive. SHE WAS GIVEN LEVAQUIN 750MG IV X 1, ZOSYN 3.375G IV X 1, SOLU-MEDROL 125MG IV X 1, AND A DUO-NEB X 1 IN THE ER. SHE WAS ADMITTED FOR FURTHE EVALUATION AND TREATMENT OF MULIFOCAL PNEUMONIA, HYPOXEMIA, HYPOKALEMIA, AND ANEMIA. SHE WAS STARTED ON NS AT 75ML/HR, IV FORTAZ, IV LEVAQUIN, RESPIRATORY TREATMENTS, SUPPLEMENTAL OXYGEN, AND LOVENOX 40MG SC DAILY FOR DVT PROPHYLAXIS. WE PLAN TO FOLLOW UP WITH AM LABS, CHEST XRAY, AND ABG AND CONTINUE TO MONITOR. - Past Medical History Past Medical History: Hypertension, Anxiety - Past Surgical History Surgical History: Ortho Surgery, Other - Family History Family Medical History: Diabetes Mellitus, Hypertension - Social History Does patient currently use any type of tobacco product: No Have you used tobacco products in the last 12 months: No Type of Tobacco Use: None Does any household member use tobacco: No Alcohol Use: None Drug Use: None - Medications Home Medications: No Known Drug Allergies Allergy (Verified 04/12/19 15:48) CONTINUE taking the following medications amlodipine 10 mg PO QDAY 04/13/19 [History] apixaban [Eliquis] 5 mg PO BID 04/13/19 [History] carvedilol 25 mg PO BID 04/13/19 [History] cetirizine 10 mg PO QDAY 04/13/19 [History] citalopram 20 mg PO QDAY 04/13/19 [History] gabapentin 600 mg PO TID 04/13/19 [History] levothyroxine 75 mcg PO QDAY 04/13/19 [History] lisinopril 20 mg PO QDAY 04/13/19 [History] tizanidine 2 - 4 mg PO TID PRN 04/13/19 [History] - Review of Systems Constitutional: No Symptoms Reported Eyes: No Symptoms Reported ENT: No Symptoms Reported Respiratory: See HPI, Cough, Shortness of Breath, SOB with Excertion, Wheezing Cardiovascular: No Symptoms Reported Gastrointestinal: No Symptoms Reported Genitourinary: No Symptoms Reported Musculoskeletal: No Symptoms Reported Skin: No Symptoms Reported Neurological: No Symptoms Reported - Physical Exam Vital Signs: Temperature 98.1 F Pulse Rate 84 Respiratory Rate 32 Blood Pressure [Left Arm] 121/72 Blood Pressure 128/76 O2 Sat by Pulse Oximetry 93 Oriented: Normal Eyes: Normal Ear: Normal Nose: Normal Throat: Normal Respiratory: Wheezes Throughout Cardiovascular: Normal, Murmur. negative: S3, S4 : Normal Auscultation: Bowel Sounds: Normal Palpation: Normal Tenderness: Normal Skin: Normal Musculoskeletal: Normal Psychiatric: Normal Mood Description: Calm Affect: Normal Speech Pattern: Clear - Assessment/Plan (1) Multilobar lung infiltrate Status: Acute Plan: ADMIT, IV FLUIDS, IV LEVAQUIN, IV ZOSYN, RESPIRATORY TX, SUPPLEMENTAL OXYGEN, CONTINUE TO MONITOR (2) Hypokalemia Status: Acute Plan: POTASSIUM REPLACEMENT PER PROTOCOL, CONTINUE TO MONITOR (3) Hypoxemia Status: Acute Plan: RESPIRATORY TX, SUPPLEMENTAL OXYGEN, CONTINUE TO MONITOR (4) Microcytic anemia Status: Acute - Allergies Allergies/Adverse Reactions: Allergies Allergy/AdvReac Type Severity Reaction Status Date / Time No Known Drug Allergies Allergy Verified 04/12/19 15:48
[2019-04-13 15:51] LABS: CREATINE KINASE 150 Units/L (26-192); CREATINE KINASE MB < 1.0 ng/mL (0-4.0); TROPONIN I 0.02 ng/mL (0-1.5)
[2019-04-13 15:52] LABS: CKMB % 0.7 % (<4)
[2019-04-13] MEDS ORDERED: NS 1000 ML 1,000 ML ONE (20:58)
[2019-04-13 21:43] LABS: BILIRUBIN,URINE NEGATIVE (NEGATIVE); BLOOD/HEMOGLOBIN,URINE 2+ (NEGATIVE); GLUCOSE, URINE NEGATIVE (NEGATIVE); KETONES,URINE NEGATIVE (NEGATIVE); LEUKOCYTE ESTERASE ,URINE 1+ (NEGATIVE); NITRITES,URINE NEGATIVE (NEGATIVE); PROTEIN,URINE 2+ (NEGATIVE); UROBILINOGEN,URINE NORMAL (NORMAL)
[2019-04-13 21:46] LABS: APPEARANCE,URINE CLEAR (CLEAR); COLOR,URINE YELLOW (YELLOW)
[2019-04-13 21:55] LABS: AMORPHOUS SEDIMENT,UR TRACE /HPF (NEGATIVE); BACTERIA,URINE TRACE /HPF (NEGATIVE); SQUAMOUS EPITHELIAL CELL,UR MODERATE /HPF (NEGATIVE)
[2019-04-13] MEDS: AMBIEN PO PRN (21:56)
[2019-04-14] MEDS: DUONEB 0.5 MG/3 MG NEB SCH ×5 (00:05→17:55)
[2019-04-14] MEDS: NS 1/2 1000 ML IV 1,000 ML IV SCH ×2 (05:21→15:01)
[2019-04-14] MEDS: SOLU-Medrol 40 MG VIAL IVP SCH ×3 (05:22→21:38)
[2019-04-14] MEDS: ZOSYN VIAL 4.5 GRAMS 4.5 G in NS 100 ML IV + SPIKE MINIBAG* 100 ML IV SCH ×3 (05:22→21:38)
--- NOTE | 2019-04-14 06:12 | RAD ---
HISTORY: Follow-up pneumonia Study: Chest AP portable Comparison: 04/13/2019, 04/12/2019 Findings: The heart is enlarged. No congestive heart failure is noted. There is some improvement in the right upper lobe pneumonia being followed. Residual infiltrate remains. The right lower lobe, right middle lobe and left upper lobes are clear. The left lower lobe appears somewhat better inflated than on the prior examination. The bony thorax is intact. IMPRESSION: Improving right upper lobe pneumonia Improving aeration left lower lobe Moderate cardiomegaly without congestive heart failure Reported By:
[2019-04-14 06:21] LABS: BASOPHILS % (AUTO) 0 % (0.2-1.0); HEMATOCRIT 25.7 % (36.0-47.0); LYMPHOCYTES # (AUTO) 0.4 X10^3/uL (1.3-2.9); LYMPHOCYTES % (AUTO) 7.6 % (21.0-51.0); MEAN CORPUSCULAR HEMOGLOBIN 22.6 pg (27.0-34.0); MEAN CORPUSCULAR HGB CONC 31.1 g/dL (33.0-35.0); MEAN CORPUSCULAR VOLUME 72.6 fL (80.0-100.0); MEAN PLATELET VOLUME 8.5 fL (7.4-11.0); MONOCYTES # (AUTO) 0.1 x10^3/uL (0.3-0.8); MONOCYTES % (AUTO) 1.6 % (0.0-13.0); NEUTROPHILS # (AUTO) 4.2 x10^3/uL (2.2-4.8); NEUTROPHILS % (AUTO) 90.8 % (42.0-75.0); PLATELET COUNT 177 X10^3/uL (150.0-450.0); RED BLOOD COUNT 3.54 X10^6/uL (3.5-5.4); RED CELL DISTRIBUTION WIDTH 19.5 % (11.6-16.5); WHITE BLOOD COUNT 4.7 X10^3/uL (3.6-10.0)
[2019-04-14 06:34] LABS: ALANINE AMINOTRANSFERASE 25 Units/L (12-78); ALKALINE PHOSPHATASE 66 Units/L (46-116); ASPARTATE AMINO TRANSFERASE 16 Units/L (15-37); BLOOD UREA NITROGEN 13 mg/dL (7-18); CALCIUM 8.5 mg/dL (8.5-10.1); CARBON DIOXIDE 27.9 mmol/L (21-32); CHLORIDE 108 mmol/L (98-107); COR CA(FOR HYPOALB) 9.3 mg/dL (8.5-10.1); COR NA(FOR HYPERGLY) 147 mmol/L (136-145); CREATININE 0.94 mg/dL (0.55-1.02); SODIUM 146 mmol/L (136-145); TOTAL PROTEIN 7.9 g/dL (6.4-8.2); eGFR NON BLACK RACES > 60 (>60)
[2019-04-14 06:47] LABS: HYPOCHROMASIA 1+; MICROCYTOSIS SLIGHT; PLATELET MORPHOLOGY COMMENT NORMAL (NORMAL)
[2019-04-14] MEDS: LOVENOX INJ 40 MG SYR SC SCH (08:40)
[2019-04-14] MEDS: VANCOMYCIN HCL 1 GM VIAL 1 G in NS 250 ML IV 250 ML IV SCH (08:40)
[2019-04-14] MEDS: PULMICORT NEB TX 0.5 MG NEB SCH ×2 (08:46→20:38)
[2019-04-14] MEDS ORDERED: NS 1/2 1000 ML IV 1,000 ML ONE (13:58)
--- NOTE | 2019-04-14 18:24 | PCM.PROG ---
Progress Note - Progress Note for Day of Date of Exam: 04/13/19 - Subjective Subjective: WAS ADMITTED FOR MULTIFOCAL PNEUMONIA, HYPOXEMIA, HYPOKALEMIA, AND ANEMIA. TODAY, SHE IS ALERT AND ORIENTED, LYING IN BED ON MORNING ROUNDS. SHE CONTINUES WITH COMPLAINTS OF SHORTNESS OF BREATH AND A NON- PRODUCTIVE COUGH TODAY. ON EXAMINATION, HEART IS REGULAR IN RATE AND RHYTHM. BI LATERAL LUNGS ARE NOTED WITH SCATTERED WHEEZING THROUGHOUT. ABDOMEN IS ROUND, SOFT, AND NON-TENDER WITH NORMAL BOWEL SOUNDS NOTED IN ALL QUADRANTS. HER VITALS THIS MORNING ARE: [id number]. LABS WERE OBTAINED. ABNORMAL LAB VALUES INCLUDE THE FOLLOWING: HGB 8.3, HCT 26.8, GLUCOSE 132, CRP 86.90, ALBUMIN 3.1, GLOBULIN 5.1. AN ABG WAS OBTAINED AND REVEALED: PH 7.520, PC02 77.0, HC03 30.2, 02 SATURATION 97.0, FI02 100.0. BLOOD AND SPUTUM CULTURES ARE PENDING. A CHEST XRAY WAS OBTAINED AND REVEALED: Dense right upper lobe consolidation and small effusion compatible with pneumonia. Developing left lower lobe atelectasis/infiltrates. Cardiomegaly. SHE IS CURRENTLY RECEIVING IV FORTAZ AND IV LEVAQUIN, RESPIRATORY TREATMENTS, AND SUPPLEMENTAL OXYGEN. TODAY, WE WILL DISCONTINUE THE LEVAQUIN AND START VANCOMYCIN. WE WILL START SOLU-MEDROL 80MG IV Q8H AND PULMICORT NEB TX. OTHERWISE, WE PLAN TO FOLLOW UP WITH AM LABS AND CHEST XRAY AND CONTINUE TO MONITOR. - Past Medical Family Social History Past Med/Fam/Surg Hx: No changes since H&P Allergies: Allergies No Known Drug Allergies Allergy (Verified 04/12/19 15:48) - Review of Systems ROS: No change since H&P - Vital Signs and I&O's Vital Signs: Temperature 98.0 F Pulse Rate 84 Respiratory Rate 23 Blood Pressure [Left Arm] 121/72 Blood Pressure 148/78 O2 Sat by Pulse Oximetry 94 Intake and Output: Intake & Output 04/12/19 04/13/19 04/14/19 04/15/19 11:59 11:59 11:59 11:59 Intake Total 1522 / 1522 2585 / 2585 2157 / 2157 Output Total 600 / 600 1050 / 1050 1800 / 1800 Balance 922 / 922 1535 / 1535 357 / 357 - Physical Exam Oriented: Normal Eyes: Normal Ear: Normal Nose: Normal Throat: Normal Cardiovascular: Normal, Murmur. negative: S3, S4 : Normal Auscultation: Bowel Sounds: Normal Tenderness: Normal Skin: Normal Musculoskeletal: Normal Psychiatric: Normal Mood Description: Calm Affect: Normal Speech Pattern: Clear, Appropriate - Laboratory and Diagnostics Result Diagrams: 04/14/19 05:50 04/14/19 05:50 Labs: 04/14/19 10:15 Sputum - Expectorated Sputum - Final 04/12/19 16:52 Blood Blood Culture - Preliminary Laboratory WBC 4.7 X10^3/uL (3.6-10.0) 04/14/19 05:50 RBC 3.54 X10^6/uL (3.5-5.4) 04/14/19 05:50 Hgb 8.0 g/dL (12.0-16.0) L 04/14/19 05:50 Hct 25.7 % (36.0-47.0) L 04/14/19 05:50 MCV 72.6 fL (80.0-100.0) L 04/14/19 05:50 MCH 22.6 pg (27.0-34.0) L 04/14/19 05:50 MCHC 31.1 g/dL (33.0-35.0) L 04/14/19 05:50 RDW 19.5 % (11.6-16.5) H 04/14/19 05:50 Plt Count 177 X10^3/uL (150.0-450.0) 04/14/19 05:50 Plt Count Comment Adequate (ADEQUATE) 04/14/19 05:50 MPV 8.5 fL (7.4-11.0) 04/14/19 05:50 Neut % (Auto) 90.8 % (42.0-75.0) H 04/14/19 05:50 Lymph % (Auto) 7.6 % (21.0-51.0) L 04/14/19 05:50 Benzie % (Auto) 1.6 % (0.0-13.0) 04/14/19 05:50 Eos % (Auto) 0.0 % (0.9-2.9) L 04/14/19 05:50 Baso % (Auto) 0 % (0.2-1.0) L 04/14/19 05:50 Neut # (Auto) 4.2 x10^3/uL (2.2-4.8) 04/14/19 05:50 Lymph # (Auto) 0.4 X10^3/uL (1.3-2.9) L 04/14/19 05:50 Benzie # (Auto) 0.1 x10^3/uL (0.3-0.8) L 04/14/19 05:50 Eos # (Auto) 0.0 x10^3/uL (0.0-0.2) 04/14/19 05:50 Baso # (Auto) 0.0 X10^3/uL (0.0-0.1) 04/14/19 05:50 Absolute Nucleated RBC 0.4 /100WBC 04/14/19 05:50 Total Counted 100 04/14/19 05:50 Neutrophils % (Manual) 92 % (39-76) H 04/14/19 05:50 Lymphocytes % (Manual) 8 % (13-43) L 04/14/19 05:50 Plt Morphology Comment Normal (NORMAL) 04/14/19 05:50 RBC Morphology Abnormal (NORMAL) A 04/14/19 05:50 Hypochromasia 1+ A 04/14/19 05:50 Anisocytosis Slight A 04/13/19 05:55 Microcytosis Slight A 04/14/19 05:50 ESR 96 MM/HOUR (0-20) H 04/13/19 13:09 INR Target Range - 04/12/19 16:05 INR 1.31 (0.8-1.3) H 04/12/19 16:05 APTT 32.7 SECONDS (22.9-36.5) 04/12/19 16:05 PTT Comment - 04/12/19 16:05 D-Dimer 273 ng/mL (0-400) 04/12/19 16:05 Sample Site Rr 04/13/19 09:06 ABG pH 7.520 (7.35-7.45) H 04/13/19 09:06 ABG pCO2 37.0 mmHg (35.0-45.0) 04/13/19 09:06 ABG pO2 77.0 mmHg (80.0-100.0) L 04/13/19 09:06 ABG HCO3 30.2 mmol/L (22-26) H* 04/13/19 09:06 ABG O2 Saturation 97.0 % (90-100) 04/13/19 09:06 ABG Base Excess 7.0 mmol/L (-2.0-2.0) H 04/13/19 09:06 Daniel Test Pos 04/13/19 09:06 A-a Gradient 590.0 mmHg 04/13/19 09:06 FiO2 100.0 04/13/19 09:06 Blood Gas Comments Pt paige well. cdn 04/13/19 09:06 Sodium 146 mmol/L (136-145) H 04/14/19 05:50 Corrected Sodium 147 mmol/L (136-145) H 04/14/19 05:50 Potassium 3.6 mmol/L (3.5-5.1) 04/14/19 05:50 Chloride 108 mmol/L (98-107) H 04/14/19 05:50 Carbon Dioxide 27.9 mmol/L (21-32) 04/14/19 05:50 BUN 13 mg/dL (7-18) 04/14/19 05:50 Creatinine 0.94 mg/dL (0.55-1.02) 04/14/19 05:50 Est GFR (MDRD) Af Amer > 60 (>60) 04/14/19 05:50 Est GFR (MDRD) Non-Af > 60 (>60) 04/14/19 05:50 Glucose 132 mg/dL (65-99) H 04/14/19 05:50 Calcium 8.5 mg/dL (8.5-10.1) 04/14/19 05:50 Corrected Calcium 9.3 mg/dL (8.5-10.1) 04/14/19 05:50 Magnesium 2.2 mg/dL (1.7-2.9) 04/13/19 05:55 Total Bilirubin 0.80 mg/dL (0.2-1.0) 04/14/19 05:50 AST 16 Units/L (15-37) 04/14/19 05:50 ALT 25 Units/L (12-78) 04/14/19 05:50 Alkaline Phosphatase 66 Units/L (46-116) 04/14/19 05:50 Creatine Kinase 150 Units/L (26-192) 04/13/19 09:11 CK-MB (CK-2) < 1.0 ng/mL (0-4.0) 04/13/19 09:11 CK/CKMB % Calc 0.7 % (<4) 04/13/19 09:11 Troponin I 0.02 ng/mL (0-1.5) 04/13/19 09:11 C-Reactive Protein 86.90 mg/L (0-3.0) H 04/13/19 05:55 B-Natriuretic Peptide 657 pg/mL (0-79) H* 04/12/19 16:05 Total Protein 7.9 g/dL (6.4-8.2) 04/14/19 05:50 Albumin 3.0 g/dL (3.4-5.0) L 04/14/19 05:50 Globulin 4.9 g/dL (2.5-4.5) H 04/14/19 05:50 Albumin/Globulin Ratio 0.6 Ratio (1.1-2.1) L 04/14/19 05:50 Specimen Type Clean catch urine 04/13/19 21:10 Urine Color Yellow (YELLOW) 04/13/19 21:10 Urine Appearance Clear (CLEAR) 04/13/19 21:10 Urine pH 6.0 (5.0 - 8.0) 04/13/19 21:10 Ur Specific [place] 1.015 (1.000-1.030) 04/13/19 21:10 Urine Protein 2+ (NEGATIVE) 04/13/19 21:10 Urine Glucose (UA) Negative (NEGATIVE) 04/13/19 21:10 Urine Ketones Negative (NEGATIVE) 04/13/19 21:10 Urine Occult Blood 2+ (NEGATIVE) 04/13/19 21:10 Urine Nitrite Negative (NEGATIVE) 04/13/19 21:10 Urine Bilirubin Negative (NEGATIVE) 04/13/19 21:10 Urine Urobilinogen Normal (NORMAL) 04/13/19 21:10 Ur Leukocyte Esterase 1+ (NEGATIVE) 04/13/19 21:10 Urine RBC 3-5 /HPF (NONE SEEN) 04/13/19 21:10 Urine WBC 0-2 /HPF (NONE SEEN) 04/13/19 21:10 Ur Squamous Epith Cells Moderate /HPF (NEGATIVE) 04/13/19 21:10 Amorphous Sediment Trace /HPF (NEGATIVE) 04/13/19 21:10 Urine Bacteria Trace /HPF (NEGATIVE) 04/13/19 21:10 Ur Culture Indicated? No/not indicated 04/13/19 21:10 Urine Opiates Screen Negative (NEG=<300) 04/13/19 21:10 Urine Methadone Screen Negative (NEG=<300) 04/13/19 21:10 Ur Barbiturates Screen Negative (NEG=<200) 04/13/19 21:10 Ur Phencyclidine Scrn Negative (NEG=<25) 04/13/19 21:10 Ur Amphetamines Screen Negative (NEG=<1000) 04/13/19 21:10 U Benzodiazepines Scrn Negative (NEG=<200) 04/13/19 21:10 Urine Cocaine Screen Negative (NEG=<300) 04/13/19 21:10 U Marijuana (THC) Screen Negative (NEG=<50) 04/13/19 21:10 - Plan (1) Multilobar lung infiltrate Status: Acute Plan: ADMIT, IV FLUIDS, IV VANCOMYCIN, IV ZOSYN, IV SOLU-MEDROL, RESPIRATORY TX, SUPPLEMENTAL OXYGEN, CONTINUE TO MONITOR (2) Hypokalemia Status: Acute Plan: POTASSIUM REPLACEMENT PER PROTOCOL, CONTINUE TO MONITOR (3) Hypoxemia Status: Acute Plan: RESPIRATORY TX, SUPPLEMENTAL OXYGEN, CONTINUE TO MONITOR (4) Microcytic anemia Status: Acute
[2019-04-14] MEDS ORDERED: PHARMACY COMMENT IV NR (20:30)
[2019-04-14 21:37] LABS: VANCOMYCIN,TROUGH 8.7 ug/mL (15-20)
[2019-04-14] MEDS: AMBIEN PO PRN (21:50)
[2019-04-14] MEDS: MICRO K EXTEN CAP 10 MEQ PO PRN (22:20)
[2019-04-14] MEDS ORDERED: VANCOMYCIN HCL 1 GM VIAL ONE (23:28)
[2019-04-14] MEDS ORDERED: VANCOMYCIN HCL 500 MG VIAL ONE (23:28)
[2019-04-14] MEDS: VANCOMYCIN HCL 500 MG VIAL 500 MG, VANCOMYCIN HCL 1 GM VIAL 1 G in NS 250 ML IV 250 ML IV SCH (23:56)
[2019-04-15] MEDS: DUONEB 0.5 MG/3 MG NEB SCH ×3 (00:40→11:57)
[2019-04-15] MEDS ORDERED: NS 1/2 1000 ML IV 1,000 ML ONE (05:30)
[2019-04-15] MEDS: ZOSYN VIAL 4.5 GRAMS 4.5 G in NS 100 ML IV + SPIKE MINIBAG* 100 ML IV SCH (05:36)
[2019-04-15] MEDS: NS 1/2 1000 ML IV 1,000 ML IV SCH (05:36)
[2019-04-15] MEDS: SOLU-Medrol 40 MG VIAL IVP SCH (05:37)
[2019-04-15 06:07] LABS: BASOPHILS % (AUTO) 0.2 % (0.2-1.0); HEMATOCRIT 24.8 % (36.0-47.0); HEMOGLOBIN 7.8 g/dL (12.0-16.0); LYMPHOCYTES # (AUTO) 0.4 X10^3/uL (1.3-2.9); LYMPHOCYTES % (AUTO) 8.5 % (21.0-51.0); MEAN CORPUSCULAR HEMOGLOBIN 22.8 pg (27.0-34.0); MEAN CORPUSCULAR HGB CONC 31.4 g/dL (33.0-35.0); MEAN CORPUSCULAR VOLUME 72.6 fL (80.0-100.0); MEAN PLATELET VOLUME 8.4 fL (7.4-11.0); MONOCYTES # (AUTO) 0.1 x10^3/uL (0.3-0.8); NEUTROPHILS # (AUTO) 4.2 x10^3/uL (2.2-4.8); NEUTROPHILS % (AUTO) 89.3 % (42.0-75.0); PLATELET COUNT 169 X10^3/uL (150.0-450.0); RED BLOOD COUNT 3.42 X10^6/uL (3.5-5.4); RED CELL DISTRIBUTION WIDTH 19.2 % (11.6-16.5); WHITE BLOOD COUNT 4.7 X10^3/uL (3.6-10.0)
[2019-04-15 06:21] LABS: ALANINE AMINOTRANSFERASE 39 Units/L (12-78); ALBUMIN 2.9 g/dL (3.4-5.0); ALKALINE PHOSPHATASE 57 Units/L (46-116); ASPARTATE AMINO TRANSFERASE 22 Units/L (15-37); BLOOD UREA NITROGEN 15 mg/dL (7-18); CALCIUM 8.5 mg/dL (8.5-10.1); CHLORIDE 107 mmol/L (98-107); COR CA(FOR HYPOALB) 9.4 mg/dL (8.5-10.1); COR NA(FOR HYPERGLY) 145 mmol/L (136-145); CREATININE 0.88 mg/dL (0.55-1.02); SODIUM 144 mmol/L (136-145); TOTAL PROTEIN 7.5 g/dL (6.4-8.2); eGFR NON BLACK RACES > 60 (>60)
[2019-04-15 06:35] LABS: ANISOCYTOSIS 1+; HYPOCHROMASIA 1+; MICROCYTOSIS 1+; PLATELET MORPHOLOGY COMMENT NORMAL (NORMAL)
--- NOTE | 2019-04-15 07:51 | RAD ---
History: Shortness of breath Study: Portable AP chest Comparison: Yesterday Findings: There is unchanged moderate to severe cardiomegaly. There is improved density at the left lung base medially. There are linear bands of density in the left mid lung peripherally. The right lower lobe is improved. There is a mild right perihilar infiltrate improved. Impression: 1. Mild residual improved perihilar upper lobe pneumonia 2. Subsegmental atelectasis in the left mid lung with improved aeration in the left lower lobe medially 3. Persistent moderate cardiomegaly Reported By:
[2019-04-15] MEDS: LOVENOX INJ 40 MG SYR SC SCH (08:27)
[2019-04-15] MEDS: MAGNESIUM SULFATE 1 GRAM/100 mL PREMIX 1 GM/100 ML BAG IV PRN ×2 (08:27→09:29)
[2019-04-15] MEDS: PULMICORT NEB TX 0.5 MG NEB SCH (09:06)
[2019-04-15] MEDS ORDERED: ZESTRIL TAB 20 MG PO SCH (10:00)
[2019-04-15 10:13] LABS: ABG BASE EXCESS 7.5 mmol/L (-2.0-2.0)
[2019-04-15 10:14] LABS: ABG ALLEN TEST POS; ABG HCO3 31.1 mmol/L (22-26)
[2019-04-15] MEDS: VANCOMYCIN HCL 500 MG VIAL 500 MG, VANCOMYCIN HCL 1 GM VIAL 1 G in NS 250 ML IV 250 ML IV SCH (10:20)
[2019-04-15 12:22] VITALS: BP 143/85
== END 2019-04-15 13:15 | disposition home or self-care (01) | DRG 194 ==
LOC: ER 15:48 → ICU 19:01
PROVIDERS: ADMIT Internal Medicine; ATTEND Obstetrics & Gynecology Obstetrics
DX: R06.02 Shortness of breath; I10 Essential (primary) hypertension; Z79.899 Other long term (current) drug therapy; Z79.01 Long term (current) use of anticoagulants; Z86.718 Personal history of other venous thrombosis and embolism; J90 Pleural effusion, not elsewhere classified; R09.02 Hypoxemia; D64.89 Other specified anemias; E87.6 Hypokalemia; F41.8 Other specified anxiety disorders; J18.8 Other pneumonia, unspecified organism
CPT/HCPCS: 36415; 36600; 71010; 71045; 71275; 80053; 80202; 80307; 81001; 82550; 82553; 82565; 82803; 83735; 83880; 84132; 84484; 85025; 85378; 85610; 85652; 85730; 86140; 87040; 87070; 87205; 93005; 94640; 96365; 96374; 96375; 97161; 97165; 99285; A4222; G0434; J1650; J1956; J2543; J2920; J2930; J3370; J3475; J7030; J7050; J7620; J7626; J8499

== ENCOUNTER 2021-02-11 00:29 | Inpatient (IN) ==
[2021-02-11] MEDS ORDERED: NS 1000 ML 1,000 ML IV STA (00:46)
[2021-02-11] MEDS ORDERED: VANCOMYCIN IV *PREMIX 1 G/200 ML BAG 1 G/200 ML PIGGYBACK IV ONE ×2 (00:50→01:02)
[2021-02-11] MEDS ORDERED: NS 500 ML IV 500 ML IV ONE (01:02)
[2021-02-11 01:51] LABS: ALANINE AMINOTRANSFERASE 45 Units/L (12-78); ALBUMIN 3.3 g/dL (3.4-5.0); ALKALINE PHOSPHATASE 85 Units/L (46-116); ASPARTATE AMINO TRANSFERASE 50 Units/L (15-37); BLOOD UREA NITROGEN 11 mg/dL (7-18); CALCIUM 8.7 mg/dL (8.5-10.1); CHLORIDE 106 mmol/L (98-107); COR CA(FOR HYPOALB) 9.3 mg/dL (8.5-10.1); COR NA(FOR HYPERGLY) 147 mmol/L (136-145); CREATININE 1.16 mg/dL (0.55-1.02); SODIUM 146 mmol/L (136-145); TOTAL PROTEIN 8.3 g/dL (6.4-8.2); eGFR NON BLACK RACES 54 (>60)
[2021-02-11 01:54] LABS: SERUM PREGNANCY TEST, QUAL NEGATIVE <10 mIU/mL
[2021-02-11 01:59] LABS: BASOPHILS % (AUTO) 0.1 % (0.2-1.0); HEMATOCRIT 34.6 % (36.0-47.0); HEMOGLOBIN 11.3 g/dL (12.0-16.0); LYMPHOCYTES # (AUTO) 0.9 X10^3/uL (1.3-2.9); LYMPHOCYTES % (AUTO) 6.7 % (21.0-51.0); MEAN CORPUSCULAR HEMOGLOBIN 29.2 pg (27.0-34.0); MEAN CORPUSCULAR HGB CONC 32.6 g/dL (33.0-35.0); MEAN CORPUSCULAR VOLUME 89.7 fL (80.0-100.0); MEAN PLATELET VOLUME 9.2 fL (7.4-11.0); MONOCYTES # (AUTO) 0.4 x10^3/uL (0.3-0.8); MONOCYTES % (AUTO) 2.7 % (0.0-13.0); NEUTROPHILS # (AUTO) 12.8 x10^3/uL (2.2-4.8); NEUTROPHILS % (AUTO) 90.5 % (42.0-75.0); PLATELET COUNT 142 X10^3/uL (150.0-450.0); RED BLOOD COUNT 3.85 X10^6/uL (3.5-5.4); RED CELL DISTRIBUTION WIDTH 16.7 % (11.6-16.5); WHITE BLOOD COUNT 14.2 X10^3/uL (3.6-10.0)
--- NOTE | 2021-02-11 02:06 | VAS ---
HISTORY: [Extremity pain, swelling, and edema]Study: Left lower extremity Doppler venous ultrasound.Comparison: [none].TECHNIQUE: Multiple lang scale and color flow Doppler images of the deep venous system were obtained of the [left] lower extremity.FINDINGS:The deep venous system of the [left] lower extremity evaluated from the level of the common femoral vein through the popliteal vein. Normal color flow and augmentation can be observed. In addition, normal compression is seen throughout the deep venous system. [No Hampton's cyst is seen].IMPRESSION:1. [Negative examination for DVT].Electronically signed by: Ajit Angela (February 11, 2021 02:04:27)
--- NOTE | 2021-02-11 02:11 | DR.NAUSEAF ---
HPI Time Seen Time Seen by Provider: 02/11/21 00:41 HPI Comment HPI Comment: PATIENT WITH A HISTORY OF HYPERTENSION, DVT LOWER EXTREMITY COMPLAINS OF FEVER X 2 DAYS, LEFT LOWER EXTREMITY PAIN, SWELLING, REDNESS AND WARMTH. STATES LEFT CALF AND GUERRIER IS PAINFUL TO TOUCH. HAS ASSOCIATED NAUSEA, DENIES EMESIS. Complaints Chief Complaint Doctors Comments: FEVER, LEFT LEG PAIN AND SWELLING Reviewed Nurses Notes Reviewed: Yes Source History Provided: Patient and EMS PMH PMH Past Medical History: Anxiety and Hypertension Past Surgical History: Yes Surgical History: Ortho Surgery and Other Family History Family Medical History: Diabetes Mellitus and Hypertension Social History Do you use any recreational Drugs:: No ROS Review of Systems Constitutional: See HPI and Fever Eyes: No Symptoms Reported ENTM: No Symptoms Reported Respiratoy: No Symptoms Reported Cardiovascular: No Symptoms Reported Gastrointestinal/Abdominal: No Symptoms Reported Genitourinary: No Symptoms Reported Neurological: No Symptoms Reported Musculoskeletal: Muscle Stiffness and Left Integumentary: Rash Hematologic/Lymphatic: No Symptoms Reported Endocrine: No Symptoms Reported Psychiatric: No Symptoms Reported All Other Systems: Reviewed and Negative PE Vital Signs Vitals: Temperature 98.9 F Pulse Rate 84 Respiratory Rate 20 Blood Pressure [Right Arm] 148/72 Blood Pressure 115/74 O2 Sat by Pulse Oximetry 94 General General Appearance: Alert and In No Apparent Distress Eyes Eye exam: Normal Appearance, PERRL and EOMI ENT ENT Exam: Normal Exam and Normal Oropharynx Chest Chest Inspection: Normal Inspection Respiratory Respiratory Exam: Normal Lung Sounds Bilat Respiratory Exam: Bilateral: Clear to Auscultation Cardiovascular Cardiovascular Exam: Regular Rate and Normal Rhythm Abdominal Exam Abdominal Exam: Normal Inspection, Normal Bowel Sounds and Tenderness Extremities Extremities Exam: Tenderness and Calf Tenderness (CIRCUMFERENCE RIGHT MID GUERRIER/CALF-35CM, LEFT MID GUERRIER/CALF CIRCUMFERENCE 37CM, MARKED LEFT CALF TENDERNESS) Back Back Exam: Normal Inspection and Full ROM Skin Skin Exam: Warm, Dry and Erythema (LEFT MID TO DISTAL GUERRIER) MDM Differential Diagnosis Differential Diagnosis Comment: DVT LEFT LOWER EXTREMITY, CELLULITIS LEFT LOWER EXTREMITY COURSE Treatment Treatment: AFTER 2 SETS OF BLOOD CULTURES, VANCOMYCIN 1GM IVPB, Consultation Call Returned: 02:20 Consultation Comments: FINDINGS DISCUSSED WITH DR HOLLOWAY AT 0220 FOR ADMIT TO OBSERVATION ROR Labs Reviewed Laboratory Results Reviewed?: Yes Result Diagrams: 02/11/21 01:20 02/11/21 01:20 Laboratory: WBC 14.2 X10^3/uL (3.6-10.0) H 02/11/21 01:20 RBC 3.85 X10^6/uL (3.5-5.4) 02/11/21 01:20 Hgb 11.3 g/dL (12.0-16.0) L 02/11/21 01:20 Hct 34.6 % (36.0-47.0) L 02/11/21 01:20 MCV 89.7 fL (80.0-100.0) 02/11/21 01:20 MCH 29.2 pg (27.0-34.0) 02/11/21 01:20 MCHC 32.6 g/dL (33.0-35.0) L 02/11/21 01:20 RDW 16.7 % (11.6-16.5) H 02/11/21 01:20 Plt Count 142 X10^3/uL (150.0-450.0) L 02/11/21 01:20 Plt Count Comment Adequate (ADEQUATE) 02/11/21 01:20 MPV 9.2 fL (7.4-11.0) 02/11/21 01:20 Neut % (Auto) 90.5 % (42.0-75.0) H 02/11/21 01:20 Lymph % (Auto) 6.7 % (21.0-51.0) L 02/11/21 01:20 [place] % (Auto) 2.7 % (0.0-13.0) 02/11/21 01:20 Eos % (Auto) 0.0 % (0.9-2.9) L 02/11/21 01:20 Baso % (Auto) 0.1 % (0.2-1.0) L 02/11/21 01:20 Neut # (Auto) 12.8 x10^3/uL (2.2-4.8) H 02/11/21 01:20 Lymph # (Auto) 0.9 X10^3/uL (1.3-2.9) L 02/11/21 01:20 [place] # (Auto) 0.4 x10^3/uL (0.3-0.8) 02/11/21 01:20 Eos # (Auto) 0.0 x10^3/uL (0.0-0.2) 02/11/21 01:20 Baso # (Auto) 0.0 X10^3/uL (0.0-0.1) 02/11/21 01:20 Absolute Nucleated RBC 0.1 /100WBC 02/11/21 01:20 Total Counted 100 02/11/21 01:20 Neutrophils % (Manual) 86 % (39-76) H 02/11/21 01:20 Lymphocytes % (Manual) 13 % (13-43) 02/11/21 01:20 Monocytes % (Manual) 1 % (4-9) L 02/11/21 01:20 Plt Morphology Comment Normal (NORMAL) 02/11/21 01:20 RBC Morphology Normal (NORMAL) 02/11/21 01:20 PT 14.9 SECONDS (11.8-14.3) 02/11/21 01:20 INR Target Range - 02/11/21 01:20 INR 1.23 (0.8-1.3) 02/11/21 01:20 APTT 35.9 SECONDS (22.9-36.5) 02/11/21 01:20 PTT Comment - 02/11/21 01:20 Sodium 146 mmol/L (136-145) H 02/11/21 01:20 Corrected Sodium 147 mmol/L (136-145) H 02/11/21 01:20 Potassium 3.4 mmol/L (3.5-5.1) L 02/11/21 01:20 Chloride 106 mmol/L (98-107) 02/11/21 01:20 Carbon Dioxide 30.0 mmol/L (21-32) 02/11/21 01:20 BUN 11 mg/dL (7-18) 02/11/21 01:20 Creatinine 1.16 mg/dL (0.55-1.02) H 02/11/21 01:20 Est GFR (MDRD) Af Amer > 60 (>60) 02/11/21 01:20 Est GFR (MDRD) Non-Af 54 (>60) L 02/11/21 01:20 Glucose 151 mg/dL (65-99) H 02/11/21 01:20 Lactic Acid 1.0 mmol/L (0.4-2.0) 02/11/21 01:20 Calcium 8.7 mg/dL (8.5-10.1) 02/11/21 01:20 Corrected Calcium 9.3 mg/dL (8.5-10.1) 02/11/21 01:20 Total Bilirubin 1.80 mg/dL (0.2-1.0) H 02/11/21 01:20 AST 50 Units/L (15-37) H 02/11/21 01:20 ALT 45 Units/L (12-78) 02/11/21 01:20 Alkaline Phosphatase 85 Units/L (46-116) 02/11/21 01:20 Total Protein 8.3 g/dL (6.4-8.2) H 02/11/21 01:20 Albumin 3.3 g/dL (3.4-5.0) L 02/11/21 01:20 Globulin 5.0 g/dL (2.5-4.5) H 02/11/21 01:20 Albumin/Globulin Ratio 0.7 Ratio (1.1-2.1) L 02/11/21 01:20 HCG, Qual Negative <10 mIU/mL 02/11/21 01:20 Influenza Type A Ag Negative-presumptive (NEGATIVE) 02/11/21 01:47 Influenza Type B Ag Negative-presumptive (NEGATIVE) 02/11/21 01:47 SARS CoV-2 RNA Rapid FARHAN Negative (NEGATIVE) 02/11/21 01:47 XRAY X-ray Results: VENOUS DOPPLER LEFT LEG NEGATIVE FOR DVT Opioid Opioid Risk Tool Age (Fabian box if 16-45): Yes History of Preadolescent Sexual Abuse: No Total: 1 Total Score Risk Category: Low Risk Copyright: Hunter SALAZAR predicting aberrant behaviors Diagnosis Discharge Problem: Cellulitis of left leg
[2021-02-11] MEDS ORDERED: K-DUR TAB 20 MEQ PO STA (02:12)
[2021-02-11 02:31] LABS: PLATELET MORPHOLOGY COMMENT NORMAL (NORMAL)
[2021-02-11] MEDS ORDERED: K-DUR TAB 20 MEQ PO ONE (02:35)
[2021-02-11] MEDS ORDERED: VANCOMYCIN IV *PREMIX 1 G/200 ML BAG 1 G/200 ML PIGGYBACK IV SCH (02:41)
[2021-02-11] MEDS ORDERED: SYNTHROID 75 mcg TAB PO SCH (03:00)
[2021-02-11] MEDS ORDERED: PHARMACY CONSULT - VANCOMYCIN XX SCH (03:00)
[2021-02-11] MEDS ORDERED: CELEXA PO SCH (03:00)
[2021-02-11] MEDS ORDERED: K-DUR TAB 20 MEQ PO SCH (03:00)
[2021-02-11] MEDS ORDERED: ZESTRIL TAB 20 MG PO SCH (03:00)
[2021-02-11] MEDS: NS 1000 ML 1,000 ML IV SCH ×2 (04:30→20:52)
[2021-02-11] MEDS ORDERED: VANCOMYCIN HCL 750 MG VIAL 750 MG in D5W 250 ML IV 250 ML IV ONE (05:00)
--- NOTE | 2021-02-11 05:13 | RAD ---
HISTORYPT C/O COUGHSTUDYCHEST, 1 [id number]/09/2019FINDINGSThe trachea is midline. The cardiac silhouette is mildly enlarged.. The lungs are clear without focal infiltrate or effusion. Pulmonary vasculature within normal limits. No pneumothorax. The bony thorax is unremarkable.IMPRESSIONMild cardiomegaly.No active cardiopulmonary diseaseElectronically signed by: Ajit Angela (February 11, 2021 05:10:45)
[2021-02-11 05:46] VITALS: BMI 32.1
[2021-02-11] MEDS ORDERED: VANCOMYCIN HCL VIAL 1.25 G 1.25 G in D5W 250 ML IV 250 ML IV SCH (10:00)
[2021-02-11] MEDS ORDERED: ZESTRIL TAB 20 MG ONE (10:09)
[2021-02-11] MEDS: K-DUR TAB 20 MEQ PO SCH (10:19)
[2021-02-11] MEDS: VANCOMYCIN IV *PREMIX 1.25 G/250 ML BAG 1.25 G/250 ML PIGGYBACK IV SCH ×2 (10:20→20:37)
[2021-02-11] MEDS: ZESTRIL TAB 20 MG PO SCH (10:20)
[2021-02-11] MEDS: LOVENOX INJ 40 MG SYR SC SCH (14:06)
[2021-02-11] MEDS: ROXICODONE TAB 5 MG PO PRN (15:46)
[2021-02-11] MEDS: COREG TAB 25 MG PO SCH (20:36)
[2021-02-11] MEDS: NEURONTIN TAB 600 MG PO PRN (20:36)
[2021-02-11] MEDS: TYLENOL 325 MG TAB PO PRN (20:36)
[2021-02-12] MEDS: TYLENOL 325 MG TAB PO PRN ×2 (04:35→11:10)
[2021-02-12 05:21] LABS: BASOPHILS % (AUTO) 0.1 % (0.2-1.0); EOSINOPHILS % (AUTO) 0.1 % (0.9-2.9); HEMATOCRIT 29.5 % (36.0-47.0); LYMPHOCYTES # (AUTO) 1.3 X10^3/uL (1.3-2.9); LYMPHOCYTES % (AUTO) 16.4 % (21.0-51.0); MEAN CORPUSCULAR HEMOGLOBIN 28.7 pg (27.0-34.0); MEAN CORPUSCULAR HGB CONC 31.7 g/dL (33.0-35.0); MEAN CORPUSCULAR VOLUME 90.6 fL (80.0-100.0); MEAN PLATELET VOLUME 9.1 fL (7.4-11.0); MONOCYTES # (AUTO) 0.4 x10^3/uL (0.3-0.8); MONOCYTES % (AUTO) 5.7 % (0.0-13.0); NEUTROPHILS % (AUTO) 77.7 % (42.0-75.0); PLATELET COUNT 105 X10^3/uL (150.0-450.0); RED BLOOD COUNT 3.25 X10^6/uL (3.5-5.4); RED CELL DISTRIBUTION WIDTH 16.9 % (11.6-16.5); WHITE BLOOD COUNT 7.7 X10^3/uL (3.6-10.0)
[2021-02-12 05:31] LABS: HEMOGLOBIN 9.3 g/dL (12.0-16.0)
[2021-02-12 05:36] LABS: ALANINE AMINOTRANSFERASE 28 Units/L (12-78); ALBUMIN 2.8 g/dL (3.4-5.0); ALKALINE PHOSPHATASE 65 Units/L (46-116); ASPARTATE AMINO TRANSFERASE 27 Units/L (15-37); BLOOD UREA NITROGEN 6 mg/dL (7-18); CALCIUM 8.2 mg/dL (8.5-10.1); CARBON DIOXIDE 29.6 mmol/L (21-32); CHLORIDE 107 mmol/L (98-107); COR CA(FOR HYPOALB) 9.2 mg/dL (8.5-10.1); COR NA(FOR HYPERGLY) 144 mmol/L (136-145); CREATININE 0.97 mg/dL (0.55-1.02); SODIUM 144 mmol/L (136-145); eGFR NON BLACK RACES > 60 (>60)
[2021-02-12] MEDS ORDERED: KLOR-CON PO PRN (07:47)
[2021-02-12] MEDS ORDERED: MICRO K EXTEN CAP 10 MEQ PO PRN (07:47)
[2021-02-12] MEDS ORDERED: POTASSIUM CHL 40 MEQ/NS 0.45% 500 ML IV PRN (07:47)
[2021-02-12] MEDS ORDERED: POTASSIUM CHLORIDE LIQ 20 MEQ UDC PO PRN (07:47)
[2021-02-12] MEDS ORDERED: POTASSIUM CHL 60 MEQ/NS 0.45% 500 ML IV PRN (07:47)
[2021-02-12] MEDS ORDERED: K-RIDER 10 MEQ/NS 100 ML 10 MEQ/100 ML BAG IV PRN (07:47)
[2021-02-12] MEDS ORDERED: ZESTRIL TAB 20 MG ONE (08:34)
[2021-02-12] MEDS: K-DUR TAB 20 MEQ PO SCH (09:07)
[2021-02-12] MEDS: NORVASC TAB 10 MG PO SCH (09:07)
[2021-02-12] MEDS: LOVENOX INJ 40 MG SYR SC SCH (09:07)
[2021-02-12] MEDS: COREG TAB 25 MG PO SCH ×2 (09:07→20:50)
[2021-02-12] MEDS: ZESTRIL TAB 20 MG PO SCH (09:08)
[2021-02-12] MEDS: MAGNESIUM SULFATE 1 GRAM/100 mL PREMIX 1 GM/100 ML BAG IV PRN (09:11)
[2021-02-12] MEDS: K-DUR TAB 20 MEQ PO PRN (09:12)
[2021-02-12] MEDS: VANCOMYCIN IV *PREMIX 1.25 G/250 ML BAG 1.25 G/250 ML PIGGYBACK IV SCH ×2 (10:00→21:31)
--- NOTE | 2021-02-12 11:20 | DR.H&P ---
H&P - History & Physical for Day of: H&P Date: 02/11/21 - Chief Complaint Chief Complaint: LEFT LEG PAIN REDNESS AND SWELLING - History of Present Illness History of Present Illness: PATIENT WITH A HISTORY OF HYPERTENSION, DVT LOWER EXTREMITY COMPLAINS OF FEVER X 2 DAYS, LEFT LOWER EXTREMITY PAIN, SWELLING, REDNESS AND WARMTH. STATES LEFT CALF AND GUERRIER IS PAINFUL TO TOUCH. HAS ASSOCIATED NAUSEA, DENIES EMESIS. - Past Medical History Past Medical History: Hypertension, Anxiety - Past Surgical History Surgical History: Other - Family History Family Medical History: Diabetes Mellitus, Cancer, Hypertension - Social History Does patient currently use any type of tobacco product: No Have you used tobacco products in the last 12 months: No Type of Tobacco Use: None Does any household member use tobacco: No Alcohol Use: None Drug Use: None - Medications Home Medications: No Known Drug Allergies Allergy (Verified 04/12/19 15:48) - Review of Systems Constitutional: No Symptoms Reported Eyes: No Symptoms Reported ENT: No Symptoms Reported Respiratory: No Symptoms Reported Cardiovascular: Chest Pain, Edema Gastrointestinal: No Symptoms Reported Genitourinary: No Symptoms Reported Musculoskeletal: Leg Pain Skin: Other Neurological: No Symptoms Reported - Physical Exam Vital Signs: Temperature 98.3 F Pulse Rate [Apical] 80 Pulse Rate [Right] 82 Pulse Rate 76 Respiratory Rate 22 Blood Pressure [Left Arm] 117/86 Blood Pressure [Right Arm] 112/65 Blood Pressure 117/62 O2 Sat by Pulse Oximetry 97 Oriented: Normal Eyes: Normal Ear: Normal Nose: Normal Throat: Normal Respiratory: Clear Throughout Cardiovascular: Normal, Edema (LLE) : Normal Auscultation: Bowel Sounds: Normal Palpation: Normal Tenderness: Normal Skin: Decreased [place], Red, Tender, Hot Musculoskeletal: Left, Leg, Swelling, Tender Psychiatric: Anxiety Affect: Anxious Speech Pattern: Clear, Appropriate - Assessment/Plan (1) Cellulitis of left leg Status: Acute Plan: ADMIT, BLOOD CULTURES ON ADMISSION. IV ATBX, VERIFY HOME MEDICATION. IV HYDRATION, AM LABS. RO DVT (2) Hypertension Status: Chronic - Allergies Allergies/Adverse Reactions: Allergies Allergy/AdvReac Type Severity Reaction Status Date / Time No Known Drug Allergies Allergy Verified 04/12/19 15:48
[2021-02-12] MEDS: NS 1000 ML 1,000 ML IV SCH ×2 (11:35→21:07)
[2021-02-12] MEDS: ROXICODONE TAB 5 MG PO PRN (19:15)
[2021-02-12] MEDS ORDERED: PHARMACY COMMENT IV NR (20:30)
[2021-02-12 21:24] LABS: CREATININE 0.89 mg/dL (0.55-1.02); VANCOMYCIN,TROUGH 19.4 ug/mL (15-20)
[2021-02-13 06:19] LABS: BASOPHILS % (AUTO) 0.3 % (0.2-1.0); HEMATOCRIT 31.5 % (36.0-47.0); LYMPHOCYTES # (AUTO) 1.3 X10^3/uL (1.3-2.9); LYMPHOCYTES % (AUTO) 31.5 % (21.0-51.0); MEAN CORPUSCULAR HEMOGLOBIN 28.8 pg (27.0-34.0); MEAN CORPUSCULAR HGB CONC 31.8 g/dL (33.0-35.0); MEAN CORPUSCULAR VOLUME 90.7 fL (80.0-100.0); MEAN PLATELET VOLUME 9.2 fL (7.4-11.0); MONOCYTES # (AUTO) 0.4 x10^3/uL (0.3-0.8); MONOCYTES % (AUTO) 8.8 % (0.0-13.0); NEUTROPHILS # (AUTO) 2.4 x10^3/uL (2.2-4.8); NEUTROPHILS % (AUTO) 59.4 % (42.0-75.0); PLATELET COUNT 119 X10^3/uL (150.0-450.0); RED BLOOD COUNT 3.47 X10^6/uL (3.5-5.4)
[2021-02-13 06:34] LABS: ALANINE AMINOTRANSFERASE 24 Units/L (12-78); ALKALINE PHOSPHATASE 67 Units/L (46-116); ASPARTATE AMINO TRANSFERASE 24 Units/L (15-37); BLOOD UREA NITROGEN 5 mg/dL (7-18); CALCIUM 8.3 mg/dL (8.5-10.1); CARBON DIOXIDE 29.5 mmol/L (21-32); CHLORIDE 107 mmol/L (98-107); COR CA(FOR HYPOALB) 9.1 mg/dL (8.5-10.1); CREATININE 0.84 mg/dL (0.55-1.02); MAGNESIUM 1.7 mg/dL (1.7-2.9); SODIUM 144 mmol/L (136-145); TOTAL PROTEIN 7.5 g/dL (6.4-8.2); eGFR NON BLACK RACES > 60 (>60)
[2021-02-13] MEDS ORDERED: ZESTRIL TAB 20 MG ONE (08:22)
[2021-02-13] MEDS: VANCOMYCIN IV *PREMIX 1.25 G/250 ML BAG 1.25 G/250 ML PIGGYBACK IV SCH ×2 (08:35→21:17)
[2021-02-13] MEDS: K-DUR TAB 20 MEQ PO SCH (08:36)
[2021-02-13] MEDS: NORVASC TAB 10 MG PO SCH (08:36)
[2021-02-13] MEDS: LOVENOX INJ 40 MG SYR SC SCH (08:36)
[2021-02-13] MEDS: COREG TAB 25 MG PO SCH ×2 (08:37→21:16)
[2021-02-13] MEDS: ZESTRIL TAB 20 MG PO SCH (08:37)
[2021-02-13] MEDS: NS 1000 ML 1,000 ML IV SCH ×2 (10:20→21:17)
[2021-02-13] MEDS: MAGNESIUM SULFATE 1 GRAM/100 mL PREMIX 1 GM/100 ML BAG IV PRN ×2 (10:57→14:46)
[2021-02-13] MEDS: NEURONTIN TAB 600 MG PO PRN (21:32)
[2021-02-14] MEDS: NS 1000 ML 1,000 ML IV SCH ×2 (02:07→14:21)
[2021-02-14 06:48] LABS: BASOPHILS % (AUTO) 0.2 % (0.2-1.0); HEMATOCRIT 28.6 % (36.0-47.0); HEMOGLOBIN 9.3 g/dL (12.0-16.0); LYMPHOCYTES % (AUTO) 30.4 % (21.0-51.0); MEAN CORPUSCULAR HEMOGLOBIN 29.4 pg (27.0-34.0); MEAN CORPUSCULAR HGB CONC 32.7 g/dL (33.0-35.0); MEAN CORPUSCULAR VOLUME 89.8 fL (80.0-100.0); MEAN PLATELET VOLUME 9.3 fL (7.4-11.0); MONOCYTES # (AUTO) 0.4 x10^3/uL (0.3-0.8); MONOCYTES % (AUTO) 11.2 % (0.0-13.0); NEUTROPHILS # (AUTO) 1.9 x10^3/uL (2.2-4.8); NEUTROPHILS % (AUTO) 58.2 % (42.0-75.0); PLATELET COUNT 130 X10^3/uL (150.0-450.0); RED BLOOD COUNT 3.18 X10^6/uL (3.5-5.4); RED CELL DISTRIBUTION WIDTH 16.7 % (11.6-16.5); WHITE BLOOD COUNT 3.3 X10^3/uL (3.6-10.0)
[2021-02-14 07:09] LABS: ALANINE AMINOTRANSFERASE 25 Units/L (12-78); ALBUMIN 2.8 g/dL (3.4-5.0); ALKALINE PHOSPHATASE 60 Units/L (46-116); ASPARTATE AMINO TRANSFERASE 20 Units/L (15-37); BLOOD UREA NITROGEN 5 mg/dL (7-18); CALCIUM 8.1 mg/dL (8.5-10.1); CARBON DIOXIDE 28.6 mmol/L (21-32); CHLORIDE 107 mmol/L (98-107); COR CA(FOR HYPOALB) 9.1 mg/dL (8.5-10.1); CREATININE 0.71 mg/dL (0.55-1.02); MAGNESIUM 1.7 mg/dL (1.7-2.9); SODIUM 143 mmol/L (136-145); eGFR NON BLACK RACES > 60 (>60)
[2021-02-14] MEDS ORDERED: ZESTRIL TAB 20 MG ONE (08:03)
[2021-02-14 08:31] LABS: CREATININE 0.79 mg/dL (0.55-1.02); VANCOMYCIN,TROUGH 12.9 ug/mL (15-20)
[2021-02-14] MEDS: K-DUR TAB 20 MEQ PO PRN ×2 (08:40→11:28)
[2021-02-14] MEDS: K-DUR TAB 20 MEQ PO SCH (08:40)
[2021-02-14] MEDS: COREG TAB 25 MG PO SCH (08:40)
[2021-02-14] MEDS: NORVASC TAB 10 MG PO SCH (08:41)
[2021-02-14] MEDS: ZESTRIL TAB 20 MG PO SCH (08:41)
[2021-02-14] MEDS: LOVENOX INJ 40 MG SYR SC SCH (08:42)
[2021-02-14] MEDS: VANCOMYCIN IV *PREMIX 1.25 G/250 ML BAG 1.25 G/250 ML PIGGYBACK IV SCH (08:43)
[2021-02-14] MEDS ORDERED: NS 100 ML IV 100 ML with VENOFER 400 MG IV NR ×2 (08:54)
[2021-02-14] MEDS ORDERED: VITAMIN B-12 INJ IM ONE (08:54)
[2021-02-14] MEDS ORDERED: FOLIC ACID TAB 1 MG PO SCH (09:00)
[2021-02-14 12:21] VITALS: BP 141/77
== END 2021-02-14 14:35 | disposition home or self-care (01) | DRG 603 ==
LOC: ICU 00:30 → ER 00:30 → OBSVTOIN 02:41 → ICU 04:08 → MED/SURG 02-12 16:00
PROVIDERS: ADMIT Internal Medicine; ATTEND Obstetrics & Gynecology Obstetrics
DX: Z20.822 Contact with and (suspected) exposure to COVID-19; L03.116 Cellulitis of left lower limb; I10 Essential (primary) hypertension; R50.9 Fever, unspecified; Z86.718 Personal history of other venous thrombosis and embolism

== ENCOUNTER 2022-06-26 22:38 | Inpatient (IN) ==
[2022-06-26 22:51] VITALS: BMI 29.8
[2022-06-26 23:15] LABS: BASOPHILS % (AUTO) 0.1 % (0.2-1.0); HEMATOCRIT 31.7 % (36.0-47.0); HEMOGLOBIN 10.6 g/dL (12.0-16.0); LYMPHOCYTES # (AUTO) 1.7 X10^3/uL (1.3-2.9); MEAN CORPUSCULAR HEMOGLOBIN 34.2 pg (27.0-34.0); MEAN CORPUSCULAR HGB CONC 33.4 g/dL (33.0-35.0); MEAN CORPUSCULAR VOLUME 102.5 fL (80.0-100.0); MONOCYTES # (AUTO) 0.5 x10^3/uL (0.3-0.8); MONOCYTES % (AUTO) 5.6 % (0.0-13.0); NEUTROPHILS # (AUTO) 6.5 x10^3/uL (2.2-4.8); NEUTROPHILS % (AUTO) 74.3 % (42.0-75.0); RED BLOOD COUNT 3.09 X10^6/uL (3.5-5.4); RED CELL DISTRIBUTION WIDTH 17.4 % (11.6-16.5); WHITE BLOOD COUNT 8.7 X10^3/uL (3.6-10.0)
[2022-06-26 23:27] LABS: ABG BASE EXCESS 10.4 mmol/L (-2.0-2.0)
[2022-06-26 23:28] LABS: ALANINE AMINOTRANSFERASE 19 Units/L (12-78); ALBUMIN 3.8 g/dL (3.4-5.0); ALKALINE PHOSPHATASE 79 Units/L (46-116); ASPARTATE AMINO TRANSFERASE 21 Units/L (15-37); BLOOD UREA NITROGEN 11 mg/dL (7-18); CALCIUM 8.4 mg/dL (8.5-10.1); CARBON DIOXIDE 32.4 mmol/L (21-32); CHLORIDE 105 mmol/L (98-107); CREATINE KINASE 74 Units/L (26-192); SODIUM 145 mmol/L (136-145); TOTAL PROTEIN 8.2 g/dL (6.4-8.2); eGFR NON BLACK RACES > 60 (>60)
[2022-06-26 23:30] LABS: ABG ALLEN TEST pos
[2022-06-26 23:44] LABS: ABG BASE EXCESS 10.6 mmol/L (-2.0-2.0)
[2022-06-26 23:46] LABS: ABG HCO3 34.3 mmol/L (22-26)
[2022-06-26 23:47] LABS: ABG ALLEN TEST POS
[2022-06-26 23:59] LABS: ABG HCO3 35.1 mmol/L (22-26)
--- NOTE | 2022-06-27 00:01 | DR.SOBA ---
HPI Time Seen Time Seen by Provider: 06/27/22 00:01 Primary Care Physician Primary Care Physician: TANIA FUENTES HPI Comment HPI Comment: PATIENT IS 42YR OLD FEMALE IN ER WITH COUGH, SOB WEAK AND FATIGUE TIMES 4 DAYS. WORSE TODAD. SAW PCP TODAY. COVID AND FLU TEST WAS NEGATIVE. TONIGHT, FEELING MORE SOB. DYSPNEA ON EXERTION. LOW GRADE FEVER. NO DYSPNEA. Complaints Chief Complaint:: C/O SHORTNESS OF BREATH AND COUGH, STATES SHE SEEN HER PCP TODAY AND WAS TOLD COVID AND FLU TEST WAS NEGATIVE, PT STATES SHE CAN'T WALK FROM ONE ROOM TO ANOTHER WITHOUT GETTING SHORT OF BREATH Self Treatment fo Chief Complaint: NONE COVID-19 Coronavirus risk:travel/contact w/high risk person: No Has patient experienced Coronavirus symptoms: No Source History Provided: Patient and EMS Mode of Arrival Mode of Arrival: EMS Timing Onset of Chief Complaint: 06/23/22 If Chest Pain Quality: Pleuritic Location: Substernal If Cough Cough: Productive and Yellow PMH PMH Past Medical History: Yes Past Medical History: Anxiety and Hypertension Past Surgical History: Yes Surgical History: Other Past Surgical History Comment: BACK, LEFT PROSTHETIC EYE Family History History of Family Medical Conditions: Yes Family Medical History: Diabetes Mellitus, Cancer and Hypertension Social History Alcohol Use: None Do you use any recreational Drugs:: No Lives With: Alone Lives Where: Home Travel Risk Coronavirus risk:travel/contact w/high risk person: No Has patient experienced Coronavirus symptoms: No Infectious screening Have you traveled outside the country in the last 6 months?: No Isolation: Droplet ROS Review of Systems Constitutional: See HPI, Weakness and Fatigue; negative Fever Eyes: No Symptoms Reported, See HPI and Other (LEFT EYE PROSTHESIS.) ENTM: No Symptoms Reported, See HPI and Nose Congestion; negative Nose Discharge Respiratoy: See HPI, Productive Cough and Short of Breath Cardiovascular: No Symptoms Reported and See HPI; negative Chest Pain Gastrointestinal/Abdominal: No Symptoms Reported, See HPI and Abdominal Pain; negative Nausea or Vomiting Genitourinary: No Symptoms Reported and See HPI; negative Dysuria Neurological: See HPI and Weakness; negative Headache or Dizziness Musculoskeletal: See HPI and Back Pain (CHRONIC.) Integumentary: No Symptoms Reported and See HPI; negative Rash or Juandice Hematologic/Lymphatic: No Symptoms Reported and See HPI; negative Easy Bruising or Swollen Glands Endocrine: No Symptoms Reported and See HPI; negative Increased Thirst or Increased Urine Psychiatric: No Symptoms Reported and See HPI All Other Systems: Reviewed and Negative PE Vital Signs Vitals: Temperature 99.4 F Pulse Rate 84 Respiratory Rate 22 Blood Pressure [Left Arm] 117/86 Blood Pressure [Right Arm] 112/65 Blood Pressure [Left Arm] 121/72 Blood Pressure 135/93 O2 Sat by Pulse Oximetry 89 General Limitations: No Limitations General Appearance: Alert and In Distress Head Head Exam: Normal Inspection Eyes Eye exam: Normal Appearance; negative Scleral Icterus or Conjunctival Injection ENT ENT Exam: Normal Exam, Normal Oropharynx, Normal External Ear Exam and TM's Normal Bilaterally Neck Neck Exam: Normal Inspection and Trachea Midline; negative Tenderness Chest Chest Inspection: Normal Inspection and Symmetric Chest Wall Rise; negative Tenderness Respiratory Respiratory Exam: Respiratory Distress; negative Accessory Muscle Use or Chest Wall Tenderness Respiratory Exam: Bilateral: Rhonchi Cardiovascular Cardiovascular Exam: Regular Rate, Normal Rhythm and Normal Heart Sounds; negative Systolic Murmur or Diastolic Murmur Abdominal Exam Abdominal Exam: Normal Inspection, Normal Bowel Sounds and Soft; negative Tenderness Extremities Extremities Exam: Normal Inspection and Normal Capillary Refill Back Back Exam: Normal Inspection and Paraspinal Tenderness; negative (R) CVA Tenderness or (L) CVA Tenderness Neurologic Neurological Exam: Alert and Oriented X3; negative Motor Sensory Deficit Psychiatric Psychiatric Exam: Normal Affect and Normal Mood Skin Skin Exam: Intact MDM Differential Diagnosis Differential Diagnosis: Bronchitis, Pneumonia, Pneumothorax, Respiratory Insufficiency, Sinusitis and URI COURSE Treatment Treatment: SEE ORDERS DONE WHILE PATIENT WAS IN ER. PATIENT STARTED ON OXYGEN AND ZOSYN. SHE IS ADMITTED TO HOSPITAL FOR CONTINUE CARE IN HOSPITAL. Consultation Consultation Comments: DISCUSSED PATIENT WITH DR. FUENTES. HE WILL ADMIT PATIENT. Education/Counseling Education/Counseling: Patient Educated On: Diagnosis and Needs for Follow Up ROR Labs Reviewed Laboratory Results Reviewed?: Yes Result Diagrams: 06/28/22 04:50 06/28/22 04:50 Laboratory: WBC 8.7 X10^3/uL (3.6-10.0) 06/26/22 23:06 RBC 3.09 X10^6/uL (3.5-5.4) L 06/26/22 23:06 Hgb 10.6 g/dL (12.0-16.0) L 06/26/22 23:06 Hct 31.7 % (36.0-47.0) L 06/26/22 23:06 MCV 102.5 fL (80.0-100.0) H 06/26/22 23:06 MCH 34.2 pg (27.0-34.0) H 06/26/22 23:06 MCHC 33.4 g/dL (33.0-35.0) 06/26/22 23:06 RDW 17.4 % (11.6-16.5) H 06/26/22 23:06 Plt Count 181 X10^3/uL (150.0-450.0) 06/26/22 23:06 MPV 9.0 fL (7.4-11.0) 06/26/22 23:06 Neut % (Auto) 74.3 % (42.0-75.0) 06/26/22 23:06 Lymph % (Auto) 20.0 % (21.0-51.0) L 06/26/22 23:06 [place] % (Auto) 5.6 % (0.0-13.0) 06/26/22 23:06 Eos % (Auto) 0.0 % (0.9-2.9) L 06/26/22 23:06 Baso % (Auto) 0.1 % (0.2-1.0) L 06/26/22 23:06 Neut # (Auto) 6.5 x10^3/uL (2.2-4.8) H 06/26/22 23:06 Lymph # (Auto) 1.7 X10^3/uL (1.3-2.9) 06/26/22 23:06 [place] # (Auto) 0.5 x10^3/uL (0.3-0.8) 06/26/22 23:06 Eos # (Auto) 0.0 x10^3/uL (0.0-0.2) 06/26/22 23:06 Baso # (Auto) 0.0 X10^3/uL (0.0-0.1) 06/26/22 23:06 Absolute Nucleated RBC 0.1 /100WBC 06/26/22 23:06 D-Dimer 1.44 ug/ml (0.0-0.57) H 06/26/22 23:06 Sample Site Rrad 06/26/22 23:40 ABG pH 7.530 (7.35-7.45) H 06/26/22 23:40 ABG pCO2 41.0 mmHg (35.0-45.0) 06/26/22 23:40 ABG pO2 35.0 mmHg (80.0-100.0) L* 06/26/22 23:40 ABG HCO3 34.3 mmol/L (22-26) H* 06/26/22 23:40 ABG O2 Saturation 76.0 % (90-100) L* 06/26/22 23:40 ABG Base Excess 10.6 mmol/L (-2.0-2.0) H 06/26/22 23:40 Daniel Test Pos 06/26/22 23:40 A-a Gradient 63.0 mmHg 06/26/22 23:40 FiO2 21.0 06/26/22 23:40 Blood Gas Comments Xavier well-mtf 06/26/22 23:40 Sodium 145 mmol/L (136-145) 06/26/22 23:06 Corrected Sodium TNP 06/26/22 23:06 Potassium 3.4 mmol/L (3.5-5.1) L 06/26/22 23:06 Chloride 105 mmol/L (98-107) 06/26/22 23:06 Carbon Dioxide 32.4 mmol/L (21-32) H 06/26/22 23:06 BUN 11 mg/dL (7-18) 06/26/22 23:06 Creatinine 0.90 mg/dL (0.55-1.02) 06/26/22 23:06 Est GFR (MDRD) Af Amer > 60 (>60) 06/26/22 23:06 Est GFR (MDRD) Non-Af > 60 (>60) 06/26/22 23:06 Glucose 108 mg/dL (65-99) H 06/26/22 23:06 Calcium 8.4 mg/dL (8.5-10.1) L 06/26/22 23:06 Corrected Calcium TNP 06/26/22 23:06 Total Bilirubin 2.50 mg/dL (0.2-1.0) H 06/26/22 23:06 AST 21 Units/L (15-37) 06/26/22 23:06 ALT 19 Units/L (12-78) 06/26/22 23:06 Alkaline Phosphatase 79 Units/L (46-116) 06/26/22 23:06 Creatine Kinase 74 Units/L (26-192) 06/26/22 23:06 Troponin I High Sens 46.0 ng/L (4.0-60.0) 06/26/22 23:06 Total Protein 8.2 g/dL (6.4-8.2) 06/26/22 23:06 Albumin 3.8 g/dL (3.4-5.0) 06/26/22 23:06 Globulin 4.4 g/dL (2.5-4.5) 06/26/22 23:06 Albumin/Globulin Ratio 0.9 Ratio (1.1-2.1) L 06/26/22 23:06 SARS-CoV-2 (PCR) Negative (NEGATIVE) 06/26/22 23:06 Influenza Type A (PCR) Negative (NEGATIVE) 06/26/22 23:06 Influenza Type B (PCR) Negative (NEGATIVE) 06/26/22 23:06 RSV (PCR) Negative (NEGATIVE) 06/26/22 23:06 XRAY XRAY Interpreted by: Radiologist (REPORT NOTED.) and Self EKG Rate: 95 [place]: Normal Rhythm: NSR Block: None Hypertrophy: LAE ST: Nonsp Opioid Opioid Risk Tool Age (Fabian box if 16-45): Yes History of Preadolescent Sexual Abuse: No Total: 1 Total Score Risk Category: Low Risk Copyright: Hunter SALAZAR predicting aberrant behaviors Discharge Plan Diagnosis Discharge Problem: Pneumonia, Hypoxia Discharge Plan Patient Disposition: ADMITTED INPATIENT Condition: Stable
--- NOTE | 2022-06-27 01:15 | CT ---
HISTORYC/O SHORTNESS OF BREATH AND COUGH; hypoxiaSTUDYCHEST WITH [id number]/10/2020TECHNIQUEMultiple axial images of the chest were obtained from the thoracic inlet to the upper abdomen after the administration of IV contrast. Dose reduction techniques including Automated Exposure Control (AEC) and adjustment of mA and kV were utilized.FINDINGSThe mediastinum does not demonstrate significant pathological lymphadenopathy. There is no paracardial effusion observed. The thoracic aorta is normal in its contour without evidence for aneurysmal dilatation. The central pulmonary arterial system does not demonstrate central filling defects to suggest pulmonary emboli.Evaluation of the lung parenchyma multifocal bilateral patchy parenchymal opacities. No pleural effusion or pneumothorax.. No pulmonary nodule or mass can be identified. The bony thorax is unremarkable in its appearance . The visualized portions of the upper abdomen are grossly unremarkable .IMPRESSIONMultifocal bilateral patchy parenchymal opacities consistent with multifocal pneumonia.Electronically signed by: Ajit Angela (Jun 27, 2022 01:14:35)
[2022-06-27] MEDS ORDERED: ZOSYN VIAL 3.375 GRAMS 3.375 G in NS 100 ML IV 100 ML IV ONE (02:22)
[2022-06-27] MEDS ORDERED: NS 100 ML IV 100 ML ONE (02:23)
[2022-06-27] MEDS ORDERED: ZOSYN VIAL 3.375 GRAMS IV ONE (02:23)
--- NOTE | 2022-06-27 02:50 | RAD ---
HISTORYC/O SHORTNESS OF BREATH AND COUGH, STATES SHE SEEN HER PCP TODAY AND WAS TOLD COVID AND FLU TEST WAS NEGATIVE, PT STATES SHE CAN'T WALK FROM ONE ROOM TO ANOTHER WITHOUT GETTING SHORT OF BREATHSTUDYCHEST, 1 VIEWCOMPARISONMay 2020TECHNIQUEA single frontal view of the chest was obtained.FINDINGSThe heart is enlarged in size with left ventricular hypertrophy. There are scattered focal alveolar infiltrates within the right lung seen as hazy opacities. This is also seen to a lesser degree involving the left upper lobe. There is no effusion. There is no pneumothorax. The osseous structures are intact.IMPRESSIONScattered alveolar infiltrates within the right lung and minimally within the left upper lobe.Electronically signed by: Maggie Jimenez (Jun 27, 2022 02:48:58)
[2022-06-27] MEDS ORDERED: DUONEB 0.5 MG/3 MG (3 mL) NEB ONE (04:53)
[2022-06-27] MEDS ORDERED: SALINE 3% 15 ML NEB TX ONE (04:54)
[2022-06-27] MEDS: DUONEB 0.5 MG/3 MG (3 mL) NEB SCH ×5 (04:58→20:33)
[2022-06-27] MEDS ORDERED: SALINE 3% 15 ML NEB TX NEB ONE (04:58)
[2022-06-27] MEDS ORDERED: TUSSIONEX PENNKINETIC SUSP PO PRN (05:45)
[2022-06-27] MEDS: ZOSYN VIAL 3.375 GRAMS 3.375 G in NS 100 ML IV 100 ML IV SCH ×4 (06:16→21:10)
[2022-06-27] MEDS ORDERED: NS 1/2 1,000 ML IV 1,000 ML IV ONE (06:29)
[2022-06-27] MEDS: NS 1/2 1,000 ML IV 1,000 ML IV SCH ×2 (06:43→21:15)
[2022-06-27] MEDS: PULMICORT NEB TX 0.5 MG NEB SCH ×2 (08:10→20:33)
[2022-06-27] MEDS ORDERED: LEVAQUIN PREMIX IV 500 MG 500 MG/100 ML BAG IV SCH (09:00)
[2022-06-27] MEDS ORDERED: METHADONE 5 MG PO PRN (09:23)
[2022-06-27] MEDS ORDERED: LEXAPRO ONE (10:04)
[2022-06-27] MEDS: NORVASC TAB 10 MG PO SCH (10:16)
[2022-06-27] MEDS: NEURONTIN TAB 600 MG PO SCH ×2 (10:16→21:10)
[2022-06-27] MEDS: PROTONIX TAB 40 MG PO SCH (10:17)
[2022-06-27] MEDS: LEXAPRO PO SCH (10:17)
[2022-06-27] MEDS: SYNTHROID 75 mcg TAB PO SCH (10:17)
[2022-06-27] MEDS: COREG TAB 12.5 MG PO SCH ×2 (10:17→21:09)
[2022-06-27] MEDS: ROBITUSSIN DM PO SCH ×5 (10:17→21:09)
[2022-06-27] MEDS: AVELOX IV 400 MG/250 ML BAG 400 MG/250 ML PIGGYBACK IV SCH (10:18)
[2022-06-27] MEDS: FOLIC ACID TAB 1 MG PO SCH (10:18)
[2022-06-27] MEDS ORDERED: ZOFRAN INJ 4 MG VIAL IVP PRN (13:10)
[2022-06-27] MEDS ORDERED: ZOFRAN INJ 4 MG VIAL ONE (13:23)
[2022-06-27] MEDS: ZESTRIL TAB 40 MG PO SCH (17:51)
[2022-06-27] MEDS ORDERED: POTASSIUM CHL 60 MEQ/NS 0.45% 500 ML IV PRN (22:31)
[2022-06-27] MEDS ORDERED: POTASSIUM CHLORIDE LIQ 20 MEQ UDC PO PRN (22:31)
[2022-06-27] MEDS ORDERED: POTASSIUM CHL 40 MEQ/NS 0.45% 500 ML IV PRN (22:31)
[2022-06-27] MEDS ORDERED: K-RIDER 10 MEQ/NS 100 ML 10 MEQ/100 ML BAG IV PRN (22:31)
[2022-06-27] MEDS ORDERED: KLOR-CON PO PRN (22:31)
[2022-06-27] MEDS ORDERED: MICRO K EXTEN CAP 10 MEQ PO PRN (22:31)
[2022-06-27] MEDS: K-DUR TAB 20 MEQ PO PRN (23:50)
[2022-06-27] MEDS: MAGNESIUM SULFATE 1 GRAM/100 mL PREMIX 1 G/100 ML BAG IV PRN (23:51)
[2022-06-28] MEDS: DUONEB 0.5 MG/3 MG (3 mL) NEB SCH ×6 (00:10→20:30)
[2022-06-28] MEDS: MAGNESIUM SULFATE 1 GRAM/100 mL PREMIX 1 G/100 ML BAG IV PRN (02:00)
[2022-06-28 05:46] LABS: BASOPHILS # (AUTO) 0.1 X10^3/uL (0.0-0.1); BASOPHILS % (AUTO) 0.9 % (0.2-1.0); HEMATOCRIT 26.9 % (36.0-47.0); LYMPHOCYTES # (AUTO) 1.6 X10^3/uL (1.3-2.9); MEAN CORPUSCULAR HEMOGLOBIN 34.2 pg (27.0-34.0); MEAN CORPUSCULAR HGB CONC 33.4 g/dL (33.0-35.0); MEAN CORPUSCULAR VOLUME 102.4 fL (80.0-100.0); MEAN PLATELET VOLUME 8.5 fL (7.4-11.0); MONOCYTES # (AUTO) 0.4 x10^3/uL (0.3-0.8); MONOCYTES % (AUTO) 6.8 % (0.0-13.0); NEUTROPHILS # (AUTO) 3.8 x10^3/uL (2.2-4.8); NEUTROPHILS % (AUTO) 65.3 % (42.0-75.0); RED BLOOD COUNT 2.62 X10^6/uL (3.5-5.4); RED CELL DISTRIBUTION WIDTH 17.1 % (11.6-16.5); WHITE BLOOD COUNT 5.9 X10^3/uL (3.6-10.0)
[2022-06-28] MEDS: ZOSYN VIAL 3.375 GRAMS 3.375 G in NS 100 ML IV 100 ML IV SCH ×3 (05:54→21:01)
[2022-06-28 06:05] LABS: ALANINE AMINOTRANSFERASE 23 Units/L (12-78); ALBUMIN 3.2 g/dL (3.4-5.0); ALKALINE PHOSPHATASE 64 Units/L (46-116); ASPARTATE AMINO TRANSFERASE 17 Units/L (15-37); BLOOD UREA NITROGEN 10 mg/dL (7-18); CALCIUM 7.7 mg/dL (8.5-10.1); CARBON DIOXIDE 31.9 mmol/L (21-32); CHLORIDE 104 mmol/L (98-107); COR CA(FOR HYPOALB) 8.3 mg/dL (8.5-10.1); CREATININE 1.01 mg/dL (0.55-1.02); SODIUM 142 mmol/L (136-145); TOTAL PROTEIN 7.1 g/dL (6.4-8.2); eGFR NON BLACK RACES > 60 (>60)
[2022-06-28] MEDS: PULMICORT NEB TX 0.5 MG NEB SCH ×2 (08:21→20:30)
[2022-06-28] MEDS ORDERED: VITAMIN B-12 INJ IM NR (08:25)
[2022-06-28] MEDS ORDERED: LEXAPRO ONE (08:55)
[2022-06-28] MEDS: AVELOX IV 400 MG/250 ML BAG 400 MG/250 ML PIGGYBACK IV SCH (08:57)
[2022-06-28] MEDS: COREG TAB 12.5 MG PO SCH ×2 (08:58→20:39)
[2022-06-28] MEDS: FOLIC ACID TAB 1 MG PO SCH (08:58)
[2022-06-28] MEDS: SYNTHROID 75 mcg TAB PO SCH (08:59)
[2022-06-28] MEDS: NEURONTIN TAB 600 MG PO SCH ×2 (08:59→20:39)
[2022-06-28] MEDS: NORVASC TAB 10 MG PO SCH (08:59)
[2022-06-28] MEDS: ZESTRIL TAB 40 MG PO SCH (09:00)
[2022-06-28] MEDS: PROTONIX TAB 40 MG PO SCH (09:00)
[2022-06-28] MEDS: ROBITUSSIN DM PO SCH ×4 (09:01→20:38)
[2022-06-28] MEDS: LEXAPRO PO SCH (09:01)
[2022-06-28] MEDS: SOLU-Medrol 40 MG VIAL IVP SCH ×3 (09:26→21:01)
[2022-06-28] MEDS: NS 1/2 1,000 ML IV 1,000 ML IV SCH ×3 (10:07→23:20)
[2022-06-28] MEDS ORDERED: NS 100 ML IV 100 ML ONE (13:25)
[2022-06-28] MEDS ORDERED: NS 1/2 1,000 ML IV 1,000 ML IV ONE (20:31)
[2022-06-29] MEDS: DUONEB 0.5 MG/3 MG (3 mL) NEB SCH ×6 (00:33→20:05)
[2022-06-29] MEDS: SOLU-Medrol 40 MG VIAL IVP SCH ×3 (05:05→21:02)
[2022-06-29] MEDS: ZOSYN VIAL 3.375 GRAMS 3.375 G in NS 100 ML IV 100 ML IV SCH ×3 (05:06→21:01)
[2022-06-29 05:41] LABS: BASOPHILS % (AUTO) 0 % (0.2-1.0); HEMATOCRIT 26.9 % (36.0-47.0); HEMOGLOBIN 8.9 g/dL (12.0-16.0); LYMPHOCYTES # (AUTO) 0.6 X10^3/uL (1.3-2.9); LYMPHOCYTES % (AUTO) 13.8 % (21.0-51.0); MEAN CORPUSCULAR HEMOGLOBIN 34.3 pg (27.0-34.0); MEAN CORPUSCULAR HGB CONC 33.3 g/dL (33.0-35.0); MEAN CORPUSCULAR VOLUME 102.9 fL (80.0-100.0); MEAN PLATELET VOLUME 9.5 fL (7.4-11.0); MONOCYTES # (AUTO) 0.2 x10^3/uL (0.3-0.8); MONOCYTES % (AUTO) 3.6 % (0.0-13.0); NEUTROPHILS # (AUTO) 3.6 x10^3/uL (2.2-4.8); NEUTROPHILS % (AUTO) 82.6 % (42.0-75.0); RED BLOOD COUNT 2.61 X10^6/uL (3.5-5.4); RED CELL DISTRIBUTION WIDTH 17.1 % (11.6-16.5); WHITE BLOOD COUNT 4.3 X10^3/uL (3.6-10.0)
[2022-06-29 05:53] LABS: ALANINE AMINOTRANSFERASE 31 Units/L (12-78); ALBUMIN 3.3 g/dL (3.4-5.0); ALKALINE PHOSPHATASE 71 Units/L (46-116); ASPARTATE AMINO TRANSFERASE 25 Units/L (15-37); BLOOD UREA NITROGEN 13 mg/dL (7-18); CALCIUM 7.9 mg/dL (8.5-10.1); CARBON DIOXIDE 30.2 mmol/L (21-32); CHLORIDE 104 mmol/L (98-107); COR CA(FOR HYPOALB) 8.5 mg/dL (8.5-10.1); COR NA(FOR HYPERGLY) 139 mmol/L (136-145); CREATININE 1.02 mg/dL (0.55-1.02); SODIUM 139 mmol/L (136-145); TOTAL PROTEIN 7.4 g/dL (6.4-8.2); eGFR NON BLACK RACES > 60 (>60)
--- NOTE | 2022-06-29 06:24 | RAD ---
HISTORYMULTIFOCAL PNEUMONIA; HYPOXIA Relevant Clinical InformationSTUDYCHEST, JEFFERSON/LAT [id number]/19/2022FINDINGSThe trachea is midline. The cardiac silhouette is enlarged.. A mild scattered alveolar infiltrates within the right lung improved from prior study. The left lung is clear. No pneumothorax. The bony thorax is unremarkable.IMPRESSIONCardiomegaly.. Scattered alveolar infiltrates within the right lung, improved from previous 06/26/2022Electronically signed by: Ajit Angela (Jun 29, 2022 06:23:21)
[2022-06-29] MEDS: PULMICORT NEB TX 0.5 MG NEB SCH ×2 (08:45→20:05)
[2022-06-29] MEDS ORDERED: LEXAPRO ONE (08:54)
[2022-06-29] MEDS: VITAMIN B-12 INJ IM NR ×2 (09:02→09:23)
[2022-06-29] MEDS: AVELOX IV 400 MG/250 ML BAG 400 MG/250 ML PIGGYBACK IV SCH (09:03)
[2022-06-29] MEDS: LEXAPRO PO SCH (09:03)
[2022-06-29] MEDS: FOLIC ACID TAB 1 MG PO SCH (09:04)
[2022-06-29] MEDS: COREG TAB 12.5 MG PO SCH ×2 (09:04→20:22)
[2022-06-29] MEDS: NORVASC TAB 10 MG PO SCH (09:05)
[2022-06-29] MEDS: NEURONTIN TAB 600 MG PO SCH ×2 (09:05→20:22)
[2022-06-29] MEDS: ROBITUSSIN DM PO SCH ×4 (09:06→20:23)
[2022-06-29] MEDS: PROTONIX TAB 40 MG PO SCH (09:06)
[2022-06-29] MEDS: SYNTHROID 75 mcg TAB PO SCH (09:06)
[2022-06-29] MEDS: ZESTRIL TAB 40 MG PO SCH (09:06)
[2022-06-29] MEDS ORDERED: NS 1/2 1,000 ML IV 1,000 ML IV ONE (13:16)
[2022-06-29] MEDS: NS 1/2 1,000 ML IV 1,000 ML IV SCH (13:28)
[2022-06-30] MEDS: DUONEB 0.5 MG/3 MG (3 mL) NEB SCH ×6 (00:28→20:50)
[2022-06-30] MEDS: ZOSYN VIAL 3.375 GRAMS 3.375 G in NS 100 ML IV 100 ML IV SCH ×3 (05:17→21:23)
[2022-06-30] MEDS: SOLU-Medrol 40 MG VIAL IVP SCH ×3 (05:17→21:23)
[2022-06-30] MEDS: NS 1/2 1,000 ML IV 1,000 ML IV SCH ×2 (05:17→18:10)
[2022-06-30 05:36] LABS: BASOPHILS % (AUTO) 0.1 % (0.2-1.0); HEMATOCRIT 25.3 % (36.0-47.0); HEMOGLOBIN 8.6 g/dL (12.0-16.0); LYMPHOCYTES # (AUTO) 0.4 X10^3/uL (1.3-2.9); MEAN CORPUSCULAR HEMOGLOBIN 34.7 pg (27.0-34.0); MEAN CORPUSCULAR HGB CONC 33.9 g/dL (33.0-35.0); MEAN CORPUSCULAR VOLUME 102.3 fL (80.0-100.0); MEAN PLATELET VOLUME 10.9 fL (7.4-11.0); MONOCYTES # (AUTO) 0.2 x10^3/uL (0.3-0.8); MONOCYTES % (AUTO) 2.9 % (0.0-13.0); NEUTROPHILS # (AUTO) 5.5 x10^3/uL (2.2-4.8); RED BLOOD COUNT 2.47 X10^6/uL (3.5-5.4); RED CELL DISTRIBUTION WIDTH 17.3 % (11.6-16.5); WHITE BLOOD COUNT 6.2 X10^3/uL (3.6-10.0)
[2022-06-30] MEDS: XANAX PO PRN (05:44)
[2022-06-30] MEDS: PERCOCET TAB 5/325 MG PO PRN ×2 (05:45→20:56)
[2022-06-30 05:54] LABS: ALANINE AMINOTRANSFERASE 35 Units/L (12-78); ALBUMIN 3.3 g/dL (3.4-5.0); ALKALINE PHOSPHATASE 61 Units/L (46-116); ASPARTATE AMINO TRANSFERASE 30 Units/L (15-37); BLOOD UREA NITROGEN 16 mg/dL (7-18); CALCIUM 7.7 mg/dL (8.5-10.1); CARBON DIOXIDE 29.6 mmol/L (21-32); CHLORIDE 105 mmol/L (98-107); COR CA(FOR HYPOALB) 8.3 mg/dL (8.5-10.1); COR NA(FOR HYPERGLY) 141 mmol/L (136-145); CREATININE 0.89 mg/dL (0.55-1.02); SODIUM 141 mmol/L (136-145); TOTAL PROTEIN 7.2 g/dL (6.4-8.2); eGFR NON BLACK RACES > 60 (>60)
[2022-06-30] MEDS: PULMICORT NEB TX 0.5 MG NEB SCH ×2 (08:10→20:50)
[2022-06-30] MEDS ORDERED: LEXAPRO ONE (08:27)
[2022-06-30] MEDS: FOLIC ACID TAB 1 MG PO SCH (08:31)
[2022-06-30] MEDS: COREG TAB 12.5 MG PO SCH ×2 (08:31→20:11)
[2022-06-30] MEDS: AVELOX IV 400 MG/250 ML BAG 400 MG/250 ML PIGGYBACK IV SCH (08:31)
[2022-06-30] MEDS: PROTONIX TAB 40 MG PO SCH (08:32)
[2022-06-30] MEDS: LEXAPRO PO SCH (08:32)
[2022-06-30] MEDS: NORVASC TAB 10 MG PO SCH (08:32)
[2022-06-30] MEDS: NEURONTIN TAB 600 MG PO SCH ×2 (08:32→20:18)
[2022-06-30] MEDS: ZESTRIL TAB 40 MG PO SCH (08:33)
[2022-06-30] MEDS: ROBITUSSIN DM PO SCH ×4 (08:33→20:11)
[2022-06-30] MEDS: SYNTHROID 75 mcg TAB PO SCH (08:33)
[2022-07-01] MEDS: XANAX PO PRN (00:30)
[2022-07-01] MEDS: DUONEB 0.5 MG/3 MG (3 mL) NEB SCH ×7 (00:45→21:00)
[2022-07-01 05:02] LABS: BASOPHILS % (AUTO) 0 % (0.2-1.0); HEMATOCRIT 26.9 % (36.0-47.0); HEMOGLOBIN 9.2 g/dL (12.0-16.0); LYMPHOCYTES # (AUTO) 0.4 X10^3/uL (1.3-2.9); LYMPHOCYTES % (AUTO) 5.9 % (21.0-51.0); MEAN CORPUSCULAR HEMOGLOBIN 35.3 pg (27.0-34.0); MEAN CORPUSCULAR HGB CONC 34.3 g/dL (33.0-35.0); MEAN CORPUSCULAR VOLUME 102.9 fL (80.0-100.0); MEAN PLATELET VOLUME 9.3 fL (7.4-11.0); MONOCYTES # (AUTO) 0.3 x10^3/uL (0.3-0.8); MONOCYTES % (AUTO) 4.7 % (0.0-13.0); NEUTROPHILS # (AUTO) 5.7 x10^3/uL (2.2-4.8); NEUTROPHILS % (AUTO) 89.4 % (42.0-75.0); RED BLOOD COUNT 2.62 X10^6/uL (3.5-5.4); RED CELL DISTRIBUTION WIDTH 17.2 % (11.6-16.5); WHITE BLOOD COUNT 6.4 X10^3/uL (3.6-10.0)
[2022-07-01] MEDS: ZOSYN VIAL 3.375 GRAMS 3.375 G in NS 100 ML IV 100 ML IV SCH ×3 (05:11→21:10)
[2022-07-01] MEDS: SOLU-Medrol 40 MG VIAL IVP SCH ×3 (05:11→21:09)
[2022-07-01 05:14] LABS: ALANINE AMINOTRANSFERASE 30 Units/L (12-78); ALBUMIN 3.3 g/dL (3.4-5.0); ALKALINE PHOSPHATASE 62 Units/L (46-116); ASPARTATE AMINO TRANSFERASE 13 Units/L (15-37); BLOOD UREA NITROGEN 14 mg/dL (7-18); CALCIUM 7.7 mg/dL (8.5-10.1); CARBON DIOXIDE 32.8 mmol/L (21-32); CHLORIDE 104 mmol/L (98-107); COR CA(FOR HYPOALB) 8.3 mg/dL (8.5-10.1); COR NA(FOR HYPERGLY) 141 mmol/L (136-145); CREATININE 0.94 mg/dL (0.55-1.02); SODIUM 141 mmol/L (136-145); eGFR NON BLACK RACES > 60 (>60)
[2022-07-01] MEDS ORDERED: LEXAPRO ONE (08:37)
[2022-07-01] MEDS: PULMICORT NEB TX 0.5 MG NEB SCH ×2 (08:40→21:00)
[2022-07-01] MEDS: NS 1/2 1,000 ML IV 1,000 ML IV SCH ×2 (08:41→21:10)
[2022-07-01] MEDS: LEXAPRO PO SCH (09:10)
[2022-07-01] MEDS: AVELOX IV 400 MG/250 ML BAG 400 MG/250 ML PIGGYBACK IV SCH (09:10)
[2022-07-01] MEDS: FOLIC ACID TAB 1 MG PO SCH (09:11)
[2022-07-01] MEDS: NEURONTIN TAB 600 MG PO SCH ×2 (09:11→21:09)
[2022-07-01] MEDS: COREG TAB 12.5 MG PO SCH ×2 (09:11→21:08)
[2022-07-01] MEDS: NORVASC TAB 10 MG PO SCH (09:11)
[2022-07-01] MEDS: ZESTRIL TAB 40 MG PO SCH (09:12)
[2022-07-01] MEDS: PROTONIX TAB 40 MG PO SCH (09:12)
[2022-07-01] MEDS: SYNTHROID 75 mcg TAB PO SCH (09:12)
[2022-07-01] MEDS: ROBITUSSIN DM PO SCH ×4 (09:12→21:09)
[2022-07-01] MEDS ORDERED: NS 1/2 1,000 ML IV 1,000 ML IV ONE (20:11)
[2022-07-02] MEDS: DUONEB 0.5 MG/3 MG (3 mL) NEB SCH ×7 (03:00→20:38)
[2022-07-02 04:08] LABS: BASOPHILS % (AUTO) 0 % (0.2-1.0); HEMATOCRIT 29.1 % (36.0-47.0); HEMOGLOBIN 9.8 g/dL (12.0-16.0); LYMPHOCYTES # (AUTO) 0.3 X10^3/uL (1.3-2.9); LYMPHOCYTES % (AUTO) 4.5 % (21.0-51.0); MEAN CORPUSCULAR HGB CONC 33.5 g/dL (33.0-35.0); MEAN CORPUSCULAR VOLUME 101.5 fL (80.0-100.0); MEAN PLATELET VOLUME 9.9 fL (7.4-11.0); MONOCYTES # (AUTO) 0.3 x10^3/uL (0.3-0.8); MONOCYTES % (AUTO) 3.6 % (0.0-13.0); NEUTROPHILS # (AUTO) 6.9 x10^3/uL (2.2-4.8); NEUTROPHILS % (AUTO) 91.9 % (42.0-75.0); RED BLOOD COUNT 2.87 X10^6/uL (3.5-5.4); RED CELL DISTRIBUTION WIDTH 17.5 % (11.6-16.5); WHITE BLOOD COUNT 7.6 X10^3/uL (3.6-10.0)
[2022-07-02 04:10] LABS: ALANINE AMINOTRANSFERASE 25 Units/L (12-78); ALBUMIN 3.4 g/dL (3.4-5.0); ALKALINE PHOSPHATASE 65 Units/L (46-116); ASPARTATE AMINO TRANSFERASE 10 Units/L (15-37); BLOOD UREA NITROGEN 13 mg/dL (7-18); CALCIUM 7.6 mg/dL (8.5-10.1); CARBON DIOXIDE 34.4 mmol/L (21-32); CHLORIDE 105 mmol/L (98-107); COR NA(FOR HYPERGLY) 146 mmol/L (136-145); CREATININE 1.07 mg/dL (0.55-1.02); SODIUM 145 mmol/L (136-145); eGFR NON BLACK RACES 59 (>60)
[2022-07-02 04:28] LABS: ANISOCYTOSIS SLIGHT; BAND NEUTROPHILS % 4 % (0-10); PLATELET MORPHOLOGY COMMENT NORMAL (NORMAL)
[2022-07-02] MEDS: ZOSYN VIAL 3.375 GRAMS 3.375 G in NS 100 ML IV 100 ML IV SCH ×3 (05:29→21:30)
[2022-07-02] MEDS: SOLU-Medrol 40 MG VIAL IVP SCH (05:29)
[2022-07-02] MEDS ORDERED: LEXAPRO ONE (07:23)
[2022-07-02] MEDS: AVELOX IV 400 MG/250 ML BAG 400 MG/250 ML PIGGYBACK IV SCH (08:03)
[2022-07-02] MEDS: COREG TAB 12.5 MG PO SCH ×2 (08:03→20:39)
[2022-07-02] MEDS: FOLIC ACID TAB 1 MG PO SCH (08:03)
[2022-07-02] MEDS: NORVASC TAB 10 MG PO SCH (08:04)
[2022-07-02] MEDS: NEURONTIN TAB 600 MG PO SCH ×2 (08:04→20:39)
[2022-07-02] MEDS: MILK OF MAGNESIA PO SCH (08:04)
[2022-07-02] MEDS: LEXAPRO PO SCH (08:04)
[2022-07-02] MEDS: PROTONIX TAB 40 MG PO SCH (08:04)
[2022-07-02] MEDS: ZESTRIL TAB 40 MG PO SCH (08:05)
[2022-07-02] MEDS: K-DUR TAB 20 MEQ PO PRN (08:05)
[2022-07-02] MEDS: SYNTHROID 75 mcg TAB PO SCH (08:05)
[2022-07-02] MEDS: ROBITUSSIN DM PO SCH ×4 (08:05→21:30)
[2022-07-02] MEDS: PULMICORT NEB TX 0.5 MG NEB SCH ×2 (08:35→20:39)
[2022-07-02] MEDS: PREDNISONE TAB 10 MG PO SCH (12:01)
[2022-07-02] MEDS: NS 1/2 1,000 ML IV 1,000 ML IV SCH (12:03)
[2022-07-02] MEDS: DIFLUCAN PO SCH (15:14)
[2022-07-03] MEDS: DUONEB 0.5 MG/3 MG (3 mL) NEB SCH ×3 (01:15→08:09)
[2022-07-03] MEDS: NS 1/2 1,000 ML IV 1,000 ML IV SCH (02:24)
[2022-07-03] MEDS ORDERED: NS 100 ML IV 100 ML ONE (05:01)
[2022-07-03 05:17] LABS: BASOPHILS % (AUTO) 0.1 % (0.2-1.0); HEMATOCRIT 27.8 % (36.0-47.0); HEMOGLOBIN 9.4 g/dL (12.0-16.0); LYMPHOCYTES # (AUTO) 1.4 X10^3/uL (1.3-2.9); LYMPHOCYTES % (AUTO) 17.9 % (21.0-51.0); MEAN CORPUSCULAR HEMOGLOBIN 34.2 pg (27.0-34.0); MEAN CORPUSCULAR HGB CONC 33.8 g/dL (33.0-35.0); MEAN CORPUSCULAR VOLUME 101.4 fL (80.0-100.0); MEAN PLATELET VOLUME 9.8 fL (7.4-11.0); MONOCYTES # (AUTO) 0.7 x10^3/uL (0.3-0.8); NEUTROPHILS # (AUTO) 5.7 x10^3/uL (2.2-4.8); RED BLOOD COUNT 2.75 X10^6/uL (3.5-5.4); RED CELL DISTRIBUTION WIDTH 17.3 % (11.6-16.5); WHITE BLOOD COUNT 7.8 X10^3/uL (3.6-10.0)
[2022-07-03] MEDS: ZOSYN VIAL 3.375 GRAMS 3.375 G in NS 100 ML IV 100 ML IV SCH (05:19)
[2022-07-03 05:28] LABS: BLOOD UREA NITROGEN 12 mg/dL (7-18); CALCIUM 7.6 mg/dL (8.5-10.1); CARBON DIOXIDE 32.8 mmol/L (21-32); CHLORIDE 108 mmol/L (98-107); CREATININE 0.95 mg/dL (0.55-1.02); SODIUM 148 mmol/L (136-145); eGFR NON BLACK RACES > 60 (>60)
[2022-07-03] MEDS: K-DUR TAB 20 MEQ PO PRN (06:28)
--- NOTE | 2022-07-03 06:43 | RAD ---
HISTORYFollow-up pneumoniaSTUDYChest AP [id number]/22/2022FINDINGSThe heart remains markedly enlarged. The yolie are normal. No infiltrates or pleural effusions are identified. Bony thorax is unremarkable.IMPRESSIONContinued cardiomegaly without congestive heart failureNo residual infiltrates identifiedElectronically signed by: JANINE GANDARA (Jul 03, 2022 06:41:24)
[2022-07-03] MEDS ORDERED: LEXAPRO ONE (07:20)
[2022-07-03] MEDS: PULMICORT NEB TX 0.5 MG NEB SCH (08:09)
[2022-07-03] MEDS: DIFLUCAN PO SCH (08:28)
[2022-07-03] MEDS: COREG TAB 12.5 MG PO SCH (08:28)
[2022-07-03] MEDS: FOLIC ACID TAB 1 MG PO SCH (08:29)
[2022-07-03] MEDS: NEURONTIN TAB 600 MG PO SCH (08:30)
[2022-07-03] MEDS: NORVASC TAB 10 MG PO SCH (08:30)
[2022-07-03] MEDS: MILK OF MAGNESIA PO SCH (08:30)
[2022-07-03] MEDS: LEXAPRO PO SCH (08:30)
[2022-07-03] MEDS: SYNTHROID 75 mcg TAB PO SCH (08:31)
[2022-07-03] MEDS: ROBITUSSIN DM PO SCH (08:31)
[2022-07-03] MEDS: PREDNISONE TAB 10 MG PO SCH (08:31)
[2022-07-03] MEDS: PROTONIX TAB 40 MG PO SCH (08:31)
[2022-07-03] MEDS: ZESTRIL TAB 40 MG PO SCH (08:32)
[2022-07-03] MEDS: AVELOX IV 400 MG/250 ML BAG 400 MG/250 ML PIGGYBACK IV SCH (09:31)
[2022-07-03 10:44] LABS: ALANINE AMINOTRANSFERASE 22 Units/L (12-78); ALBUMIN 3.2 g/dL (3.4-5.0); ALKALINE PHOSPHATASE 58 Units/L (46-116); ASPARTATE AMINO TRANSFERASE 12 Units/L (15-37); COR CA(FOR HYPOALB) 8.2 mg/dL (8.5-10.1); TOTAL PROTEIN 6.4 g/dL (6.4-8.2)
[2022-07-03 11:11] VITALS: BP 143/90
== END 2022-07-03 12:02 | disposition home or self-care (01) | DRG 195 ==
LOC: ER 22:38 → ICU 06-27 02:51
PROVIDERS: ADMIT Obstetrics & Gynecology Obstetrics; ATTEND Obstetrics & Gynecology Obstetrics
DX: R79.82 Elevated C-reactive protein (CRP); D53.1 Other megaloblastic anemias, not elsewhere classified; R26.89 Other abnormalities of gait and mobility; R94.31 Abnormal electrocardiogram [ECG] [EKG]; R06.02 Shortness of breath; R53.83 Other fatigue; J18.8 Other pneumonia, unspecified organism; Z20.822 Contact with and (suspected) exposure to COVID-19